=== PATIENT | female | born 1960 | race African-American/Black ===

== ENCOUNTER → 2021-08-15 02:58 | Outpatient (CLI) | payer OTHER, SELFPAY ==
[2021-08-15 21:55] LABS: SARS-CoV-2 RNA PCR Negative
== END ==
PROVIDERS: PCP Family Medicine; Visit Provider Internal Medicine Gastroenterology
DX: Z01.812 Encounter for preprocedural laboratory examination (principal); Z20.822 Contact with and (suspected) exposure to COVID-19
CPT/HCPCS: C9803; U0003; U0005

== ENCOUNTER 2021-08-18 00:56 | Day surgery (SDC) | payer OTHER, SELFPAY ==
[2021-08-05 13:49] VITALS: BMI 29.2
[2021-08-18 10:07] VITALS: BP 159/74; PULSE 90; RESP 18; TEMP 35.8; O2SAT 100; BMI 32.5
--- NOTE | 2021-08-18 10:31 | WPDANESEPPF ---
Anes - Initial Pre Proc Eval Procedure: Operation Date: 08/18/21 11:30 Proposed Procedures p Screening Colonoscopy - Benjamin Adkins MD Date/Time: 08/18/21 10:31 Surgeon: Benjamin Adkins MD Pre Op Diagnosis: neoplasm screening Patient Data Age: 61 Gender: F Height: 1.75 m Weight: 99.9 kg Last Vital Signs Temp 35.8 C L 08/18/21 10:07 Pulse 90 08/18/21 10:07 Resp 18 08/18/21 10:07 BP 159/74 H 08/18/21 10:07 Pulse Ox 100 08/18/21 10:07 Allergies Allergy/AdvReac Type Severity Reaction Status Date / Time No Known Allergies Allergy Verified 08/18/21 10:15 Home Medications Medication Instructions Recorded Confirmed Type amlodipine 10 mg tablet 10 mg PO DAILY 06/05/21 08/18/21 History atorvastatin 20 mg tablet 20 mg PO DAILY 06/05/21 08/18/21 History diclofenac sodium 1 % topical gel 2 g TOPICAL QID PRN 06/05/21 08/18/21 History dorzolamide 22.3 mg-timolol 6.8 1 drp EACH EYE QHS ml 06/05/21 08/18/21 History mg/mL eye drops latanoprost 0.005 % eye drops 1 drp EACH EYE DAILY 06/05/21 08/18/21 History losartan 100 mg tablet 100 mg PO DAILY 06/05/21 08/18/21 History oxybutynin chloride 5 mg tablet 5 mg PO BID #60 tablet 06/05/21 08/18/21 Rx Patient hx anesthesia problems: none Family hx anesthesia problems: none Results Review: All pre-operative results and documents have been reviewed as part of the pre-operative evaluation. FOR[facility]LY [facility], [facility] Past Medical History Medical History (Updated 07/01/21 @ 21:50 by Aniya Carmen MD) Appendicitis Benign essential HTN Cholecystitis Glaucoma History of radiation therapy HX: breast cancer Hyperlipidemia OAB (overactive bladder) Surgical History Surgical History (Updated 07/01/21 @ 21:38 by Aniya Carmen MD) History of appendectomy Hx laparoscopic cholecystectomy Hx of lumpectomy S/P DONALDO (total abdominal hysterectomy) Status post glaucoma surgery Family History Family History (Updated 07/01/21 @ 21:42 by Aniya Carmen MD) Other Heart disease Hypertension Social History Social History Smoking status: Never smoker Second hand tobacco smoke exposure: No Alcohol intake: never Substance use: never Substance use type: does not use Gender identity (if verbalized by the patient): Female Sexual Orientation (if Verbalized by the Patient): Straight or Heterosexual Anes - Eval Final PreProcedure Day of Procedure 08/18/21 10:31 Patient weight: obese Heart: regular rate and rhythm Lungs: clear to auscultation and normal air movement Airway: Mallampati scale class II Neurological: alert and oriented Last oral intake: >/= 8 hours ASA classification: III Emergent: no Anesthetic plan: proceed Anesthesia type and monitoring: general GIVS Results Review: All pre-operative results and documents have been reviewed as part of the pre-operative evaluation. Informed Consent: The patient's anesthetic plan and its attendant risks and benefits were discussed with the patient/family/POA. Questions were solicited and answers provided to the satisfaction of the patient/family/POA.
--- NOTE | 2021-08-18 10:40 | PM.HPGS ---
History of Present Illness History of Present Illness Consent: Risks, benefits, and alternatives have been discussed and questions answered. Patient agrees to proceed with procedure. Chief complaint: neoplasm screening Narrative: Ankita Soni is a 61 year old female here for screening colonoscopy, last one 5 years ago. Review of Systems Constitutional: Constitutional: Denies headache(s) and Denies weakness Eyes: Eyes: Denies blurry vision ENT: Reports Normal hearing present, Denies headache(s) and Denies neck pain Cardiovascular: Cardiovascular: Denies chest pain and Denies dyspnea Respiratory: Respiratory: Denies dyspnea Gastrointestinal: Gastrointestinal: Reports no additional gastrointestinal complaints Genitourinary: Genitourinary: Denies dysuria Musculoskeletal: Musculoskeletal: Denies neck pain Integumentary/Breasts: Skin/Breast: Denies dry skin Neurologic: Reports Normal hearing present, Denies headache(s) and Denies weakness Psychiatric: Psychiatric: Denies anxiety Endocrine: Endocrine: Denies change in body appearance Hematologic/Lymphatic: Hematologic/Lymphatic: Denies easy bleeding Allergic/Immunologic: Allergic/Immunologic: Denies urticaria PMFSH Past Medical History Medical History (Updated 07/01/21 @ 21:50 by Aniya Carmen MD) Appendicitis Benign essential HTN Cholecystitis Glaucoma History of radiation therapy HX: breast cancer Hyperlipidemia OAB (overactive bladder) Surgical History Surgical History (Updated 07/01/21 @ 21:38 by Aniya Carmen MD) History of appendectomy Hx laparoscopic cholecystectomy Hx of lumpectomy S/P DONALDO (total abdominal hysterectomy) Status post glaucoma surgery Family History Family History (Updated 07/01/21 @ 21:42 by Aniya Carmen MD) Other Heart disease Hypertension Social History Social History Smoking status: Never smoker Second hand tobacco smoke exposure: No Alcohol intake: never Substance use: never Substance use type: does not use Gender identity (if verbalized by the patient): Female Sexual Orientation (if Verbalized by the Patient): Straight or Heterosexual Meds Home Medications and Allergies Home Medications Medication Instructions Recorded Confirmed Type amlodipine 10 mg tablet 10 mg PO DAILY 06/05/21 08/18/21 History atorvastatin 20 mg tablet 20 mg PO DAILY 06/05/21 08/18/21 History diclofenac sodium 1 % topical gel 2 g TOPICAL QID PRN 06/05/21 08/18/21 History dorzolamide 22.3 mg-timolol 6.8 1 drp EACH EYE QHS ml 06/05/21 08/18/21 History mg/mL eye drops latanoprost 0.005 % eye drops 1 drp EACH EYE DAILY 06/05/21 08/18/21 History losartan 100 mg tablet 100 mg PO DAILY 06/05/21 08/18/21 History oxybutynin chloride 5 mg tablet 5 mg PO BID #60 tablet 06/05/21 08/18/21 Rx Allergies Allergy/AdvReac Type Severity Reaction Status Date / Time No Known Allergies Allergy Verified 08/18/21 10:15 Vital Signs Vital Signs - 24 hr 08/18/21 10:07 Temperature 96.5 F L Pulse Rate 90 Respiratory Rate 18 Blood Pressure 159/74 H Pulse Oximetry 100 Exam Const: General: comfortable and no acute distress HENMT: General nose exam: Normal nares present Eyes: General: appearance normal, both eyes and all related structures Neck: Neck: no JVD Resp: Auscultation: clear to auscultation bilaterally Cardio: Rate: regular rate Rhythm: regular rhythm GI: Inspection: non-distended GI Palp: Yes Soft to palpation Skin: General skin exam: normal color Neuro: General: gait normal Speech: normal speech Extrem: General: normal to inspection Psych: Mental Status: mental status grossly normal Assessment and Plan Assessment and plan (1) Colon cancer screening: Code(s): Z12.11 - Encounter for screening for malignant neoplasm of colon Status: Acute Assessment and Plan: colonoscopy
[2021-08-18] MEDS: LACTATED RINGERS 1,000 ML 150 ML IV CONT (10:52)
[2021-08-18 11:17] VITALS: BP 121/56; PULSE 80; RESP 24; O2SAT 97
[2021-08-18 11:27] VITALS: BP 123/59; PULSE 77; RESP 20; O2SAT 98
[2021-08-18 11:37] VITALS: BP 144/71; PULSE 70; RESP 19; O2SAT 100
== END 2021-08-18 12:05 | disposition home or self-care (01) ==
PROVIDERS: PCP Family Medicine; Visit Provider Internal Medicine Gastroenterology
PROC: 0DJD8ZZ Inspection of Lower Intestinal Tract, Via Natural or Artificial Opening Endoscopic (ICD-10-PCS; CPT 45378; principal; 2021-08-18 11:30)
DX: Z12.11 Encounter for screening for malignant neoplasm of colon (principal); K57.30 Diverticulosis of large intestine without perforation or abscess without bleeding; K64.8 Other hemorrhoids; I10 Essential (primary) hypertension; E78.5 Hyperlipidemia, unspecified; Z85.3 Personal history of malignant neoplasm of breast; Z92.3 Personal history of irradiation; N32.81 Overactive bladder; E66.9 Obesity, unspecified; Z68.32 Body mass index [BMI] 32.0-32.9, adult
CPT/HCPCS: 45378; C9803; J2704; J7120; U0003; U0005

== ENCOUNTER 2024-11-10 07:33 | Emergency (ER) | payer MEDICARE, SELFPAY ==
--- NOTE | ~2024-11-10 | XR_ITS ---
EXAMINATION: XR chest 1V portable 11/10/2024 08:08 INDICATION: Left-sided chest pain PROCEDURE: AP portable chest COMPARISON: No prior studies for comparison. FINDINGS: The lungs are clear. The cardiomediastinal silhouette is within normal limits. There are no pleural effusions. There is no pneumothorax suspected. IMPRESSION: 1: NO ACUTE CARDIOPULMONARY DISEASE. Reviewed, dictated and finalized at location B.
--- OUTSIDE RECORDS SUMMARY | 2024-11-10 07:40 | XMS_ITS | Encounter Summary ---
Author Organization [facility] Address [address] [place] [address] Phone Care Team Providers Care Car Seat Upholsterer Name Role Phone Carlos Eduardo Abdi MD Primary Care Provider [phone] Asim Avendano MD Primary Care Provider Aniya Carmen MD Primary Care Provider Gabriela Frye MD Primary Care Provider Karma Ledezma MD Primary Care Provide r Encounter Details Date Type Department Care Team (Late st Contact Info) Description 07/28/2019 Telephone [facility] Obstetrics and Gynecology [address] [facility] [place] Outpatient Health 7th Floor [address] [place] [address] Kelsy Martell Social History Tobacco Use Types Packs/Day Years Used Date Smoking Tobacco: Never Smokeless Tobacco: Never Alcohol Use Standard Drinks/Week Comments No 0 (1 standard drink = 0.6 oz pur e alcohol) Humiliation, Afraid, Rape, and Kick questionnair e Answer Date Recorded Fear of Current or Ex-Partner No Emotionally Abused No 04/13/2019 Physically Abused No 04/13/2019 Sexually Abused No 04/13/2019 Social Connection and Isolation Panel [NHANES] A nswer Date Recorded Frequency of Communication with Friends and Fami ly Not on file 04/13/2019 Frequency of Social Gatherings with Friends and Family Not on file 04/13/2019 Attends Worship Services Not on file 04/13 Active Member of Clubs or Organizations Not on f ile 04/13/2019 Attends Club or Organization Meetings Not on marlee e 04/13/2019 Marital Status Never 04/13/2019 Exercise Vital Sign Answer Date Recorde d Days of Exercise per Week 0 days 2018 Minutes of Exercise per Session 0 min 04/13/2019 Comments No Sex and Gender Information Value Date Recorded Sex Assigned at Not on file Legal Sex Female 12:42 AM FOOD TASTER Gender Identity Not on file Sexual Orientation Not on file 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 Author Med Mgmt Goal - Patient will understand importance of following medication regimen and will take appropriate steps to maintain regimen ACO Care Management Improving( 9:09 AM CDT) No Skyla Méndez Note: Problem: Medication management Interventions: - Assess barriers to medication adherence: Provide coordination of care, education and resources to address these barriers. Include SW in patient's plan of care for resources if needed. - Instruct patient to: Take each medication each day at the times indicated by using a system (list, pill box, etc.). Do not allow prescriptions to or bottles to become empty before requesting refills. Bring all medications to each office visit. Contact physician or CM if they feel they are having side effects from medications (rather than stopping them without telling anyone). [facility] Hypertension Care Plan Chronic Care Management No change(04/18 9:09 AM CDT) No Adrianna Wilson, RN Note: Problem: Hypertension Goals: 1. Meet age adjusted blood pressure goals 2. Prevention of complications including eyes, kidneys blood vessels 3. Avoid low blood pressure/passing out 4. Improve medicine access and compliance Strategies: - DASH Diet education - Periodic phone call screening for development of vision changes, pain/fatigue associated with walking, near falls - Periodic phone calls to request blood pressure readings, frequency of missed medication doses, any side affects - Encourage regular MD visits and remind patient of importance of keeping upcoming appointments - Recommend healthy lifestyle strategies and compensatory methods as needed documented as of this encounter Visit Diagnoses Not on filedocumented in this encounter Care Teams Car Seat Upholsterer Relationship Specialty Start Date End Date Carlos Eduardo Abdi MD [address] [facility] [address] [place] [address] PCP - General Internal Medicine 03/15/19 01/10/21 Asim Avendano MD [address] [facility] [address] [place] [address] PCP - General 12/08/21 12/09/21 Aniya Carmen MD [address] [place] [address] PCP - General 09/01/21 12/07/21 Gabriela Frye MD [address] [place] [address] PCP - General Internal Medicine 12/10/21 01/08/23 Karma Ledezma MD [address] [facility] [address] [place] [address] PCP - General 01/09/23 documented as of this encounter
--- OUTSIDE RECORDS SUMMARY | 2024-11-10 07:40 | XMS_ITS | Clinical Summary ---
Author Organization [facility] Address [facility] [place] [address] Care Team Providers Care Ag Service Manager Name Role Phone Ernesto Fitzpatrick MD Unavailable Unavailable Claudine Ramsey MD Primary Care Provider [phone] Allergies No known active allergies Medications dorzolamide 2 % ophthalmic solution Use as directed 11/30/2016 Active amlodipine 5 MG tablet Take 1 tablet (5 mg total) by mouth daily. 11/30/2016 Active latanoprost 0.005 % ophthalmic solution Use as directed 11/30/2016 Active aspirin EC 81 MG EC tablet Take 1 tablet (81 mg total) by mouth daily. 01/04/2017 Active Active Problems Problem Noted Date Diagnosed Date NETTLES (dyspnea on exertion) Essential hypertension Family History Medical History Relation Comments Breast Cancer Paternal Aunt Relation Status Comments Paternal Aunt Social History Tobacco Use Types Packs/Day Years Used Date Smoking Tobacco: Never Smokeless Tobacco: Never Alcohol Use Standard Drinks/Week Comments No 0 (1 standard drink = 0.6 oz pur e alcohol) Comments Unknown Sex and Gender Information Value Date Recorded Sex Assigned at Not on file Legal Sex Female 8:46 AM CDT Gender Identity Not on file Sexual Orientation Not on file Occupation Industry Job Start Date Job End Date Not on file Not on file Not on file Not on file Last Filed Vital Signs Vital Sign Reading Time Taken Comments Blood Pressure 142/70 01/14/2017 12:44 PM CDT Pulse 88 01/14/2017 12:44 PM CDT Temperature - - Respiratory Rate - - Oxygen Saturation 98% 01/14/2017 12:44 PM CDT Inhaled Oxygen Concentration - - Weight 99.3 kg (219 lb) 01/14/2017 12:44 PM CDT Height 175.3 cm (5' 9 ) 01/14/2017 12:44 PM CDT Body Mass Index 32.34 01/14/2017 12:44 PM CDT Plan of Treatment Health Maintenance Due Date Last Done Comments Colorectal Cancer Screening Colonoscopy (10 Years) 1958 Hepatitis C 1976 Mammogram Screening 1998 Pneumococcal Vaccine: 50+ Ye ars (1 of 1 - PCV) 2008 Zoster Vaccines (1 of 2) 2008 DTaP, Tdap and Td Vaccines ( 2 - Td or Tdap) 03/20/2019 03/20/2009 Dexa Scan (General) 2023 COVID-19 Vaccine (1 - 2023-2 5 season) 2024 RSV Immunization or 60+ Years (1 - 1-dose 75+ series) 2033 Meningococcal B Vaccine Aged Out No l onger eligible based on patient's age to complete this topic Meningococcal Vaccine Aged Out No chloe celestino eligible based on patient's age to complete this topic RSV Immunizations Under 20 Months Aged Out No longer eligible based on patient's age to complete this topic Insurance Care Teams Ag Service Manager Relationship Specialty Start Date End Date Claudine Ramsey MD PCP - General 03/09/17 Ernesto Fitzpatrick MD [employer] Super[employer] CARDIOVASCULAR DISEASE 11/24/16
--- OUTSIDE RECORDS SUMMARY | 2024-11-10 07:40 | XMS_ITS | Referral Summary ---
Author Organization [facility] [address] Address [address] [facility] [place] [id number] Care Team Providers Care Brazing Machine Operator Name Role Phone Karma Ledezma MD Primary Care Provide r Allergies Active Allergy Reactions Criticality Noted Date Comments Codeine Hallucinations Medium 01/23/2019 Medications diclofenac sodium (VOLTAREN) 1 % gel Apply 2 g topically 4 (four) times a day 100 g 1 Active olopatadine (PATANOL) 0.1 % ophthalmic solutionIndication s:Allergic Conjunctivitis Administer 1 drop into both eyes 2 (two) times a day 5 mL 11 2 Active clotrimazole 1 % creamIndications:R ellie Apply topically 2 (two) times a day Apply cream under both breasts twice a day 30 g 1 2 Active amLODIPine (NORVASC) 10 mg tablet Take 1 tablet (10 mg total) by mouth daily 90 tablet 3 3 Active cyclobenzaprine (FLEXERIL) 5 mg tabletIndications: Muscle Spasm Take 1 tablet (5 mg total) by mouth 3 (three) times a day as needed for muscle spasms 30 tablet 3 Active lidocaine (LIDODERM) 5 %Indications:Neck pain on right side Place 1 patch on the skin daily Apply to painful area 12 hours per day, remove for 12 hours. 30 patch 3 Active atorvastatin (LIPITOR) 40 mg tablet Take 1 tablet (40 mg total) by mouth daily 90 tablet 3 3 Active losartan (COZAAR) 100 mg tabletIndications: Essential (primary) hypertension Take 1 tablet (100 mg total) by mouth daily 90 tablet 3 3 Active dorzolamide-timolo L (COSOPT) 22.3-6.8 mg/mL ophthalmic solution Administer 1 drop into both eyes 2 (two) times a day 30 mL 3 Active latanoprost (XALATAN) 0.005 % ophthalmic solution Administer 1 drop into both eyes daily 7.5 mL 3 Active Active Problems Problem Noted Date Diagnosed Date Numbness and tingling in left arm 03/30/2023 Assessment & Plan (03/30/2023 2:05 PM CDT): Followed with ortho ~10 years ago and was noted to have left trigger thumb causing pain and carpal tunnel syndrome in the right hand. Interested in following with ortho again for numbness in left arm. PLAN: - ortho referral Right leg pain 03/15/2023 Overview (03/30/2023): Symptoms seem consistent with claudication. No unilateral swelling or erythema noted. Patient has risk factors for PAD w/ HTN and HLD. Pt. reports that she has been adherent to atorvastatin 40 mg since last visit. PLAN: - continue atorvastatin 40 mg - right LED - bilateral ultrasound ISAAC Assessment & Plan (03/15/2023 12:28 PM CDT): A: Symptoms seemed consistent with claudication, although always somewhat worried about DVT with unilateral leg pain, although no swelling, erythema, tenderness to further suggest a clot (although patient stated she could feel a knot?). Patient has risk factors for PAD w/ HTN, HLD, will work up further. Patient only intermittently adherent to atorva 40 -Right LED -Bilateral ultrasound ISAAC -Encourage better adherence to atorvastatin Neck pain on right side 01/27/2023 Assessment & Plan (03/30/2023 1:54 PM CDT): Reporting neck pain that extends down to shoulder; has been ongoing for several months. Pain is non-radiating and pt. 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 XR cervical spine (01/27/2023) consistent with mild multilevel cervical degenerative disease. Feels like Voltaren is helping. Not consistent taking tylenol and has not tried flexeril. Pt interested in PT. PLAN: - tylenol 1000 mg qh8 - continued use of lidocaine patch and voltaren gel prn - flexeril 5 mg TID prn - referral to PT Assessment & Plan (01/27/2023 11:18 AM CDT): Presenting with 1 month history of R-sided neck pain. No obvious trigger/injury. Chart review (though no prior XRs available for review) indicates hx of DDD. No neuropathic sxs radiating into arm, delgado negative. Minimal trapezius muscle tenderness on exam. Limited cervical spine ROM in rightward direction 2/2 pain. Strength equal bilateral upper extremities. No vertebral point tenderness to palpation. With no neuropathic sx and Delgado negative very low concern for cervical radiculopathy. 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 Will trial muscle relaxer and obtain films of cervical spine to characterize vertebral architecture. Recommended PT but patient refused. PLAN: - XR cervical spine today - start flexeril 5mg TID PRN - cont APAP, ibuprofen - lidocaine patch - offered PT, refused - neck exercises provided today in clinic Sensorineural hearing loss, bilateral 09/10/2022 Rash 04/17/2022 Assessment & Plan (04/19/2022 10:40 PM CDT): 1w h/o itch, nonpainful rash beneath breasts. Likely fungal infection iso exertion at work. Less likely cellulitis or recurrence of prior malignancy given exam. - clotrimazole bid - discussed keeping the area clean and dry Allergic conjunctivitis and rhinitis, bilateral 04/08/2022 Assessment & Plan (04/08/2022 11:22 AM CDT): Seasonal component per pt - worse when people around her are cutting grass. No issues w/ eyedrops. No follicular reaction. -- start on Pataday qday OU Prediabetes 03/27/2022 Assessment & Plan (03/30/2023 1:39 PM CDT): Hgb A1c (03/2022) - 5.4. PLAN: -repeat Hgb A1c Osteoarthritis 12/12/2021 Overview (12/29/2021): Suspect pain today is related to OA. No concern for infection. -Leon's node of L 1st finger, hx of corticosteroid injection in base of L 1st finger for bothersome OA. -Similar pain in R 5th toe -History not consistent with gout Assessment & Plan (12/29/2021 1:09 PM CDT): -Pt will be getting previously ordered x-ray of L hand and R foot. Will add L foot x-ray given pain there today -Ok for occasional ibuprofen use -Voltaren gel and lidocaine gel PRN -Tylenol 1g q6h PRN Assessment & Plan (12/12/2021 7:26 AM CDT): -Discussed with patient this can be a manifestation of OA -Recommended OTC Ibuprofen PRN, pt aware to take with food and limit use -XR L hand, R foot to r/o erosive arthritis Lump of left breast 07/31/2020 Vertigo 09/26/2019 Overview (03/27/2022): - Episodal vertigo symptoms that last several minutes after moving her head, fredrick when lying down or sitting back up. - [place] off balance at time but no falls - Denies fevers, flu/cold symptoms, hearing changes - Symptoms reproduced by [place]. [place] better when Radha maneuver performed in clinic. Ddx: BPPV given positional nature, possible Meniere vs labyrinthitis Assessment & Plan (07/31/2022 8:47 AM SEARCH ENGINE OPTIMIZATION MANAGER): Symptoms are consistent with BPPV. Also with allergic rhinitis and bilateral cerumen impaction on exam today. Performs Radha maneuver at home with some success, but would like further evaluation with ENT as her symptoms are still bothersome. -Bilateral ear irrigation performed by RN today -Use Flonase for allergic rhinitis -ENT referral Assessment & Plan (03/27/2022 1:19 PM CDT): - Performed Radha maneuver in clinic and provided patient with additional info. - PT referral in place - Patient will try Radha at home and if symptoms do not improve, will schedule with PT. 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 Cervical xrays negative, although no xrays of the R shoulder. PLAN: - can hold off on US of shoulder - PT referral - tylenol 1000 mg q8h, flexeril 5 mg TID, Voltaren and lidocaine patch prn Assessment & Plan (01/16/2019 10:06 PM CDT): C/f rotator cuff tendinopathy although empty can test negative on exam today. Symptomatically improved with APAP, typically takes this just once at the end of a work shift. - Will place new orthopedics referral, provided patient with phone # to call their clinic - Further imaging/workup per ortho recs - Start APAP 500 mg TID scheduled - Will write work note recommending lifting restrictions Combined forms of age-related cataract of both e yes 08/03/2018 Assessment & Plan (08/12/2022 5:10 PM SEARCH ENGINE OPTIMIZATION MANAGER): Not VS- observe Assessment & Plan (04/08/2022 11:21 AM CDT): Not VS- observe Assessment & Plan (10/02/2020 11:43 AM SEARCH ENGINE OPTIMIZATION MANAGER): Increased glare symptoms- but defer cataract extraction (CE) for now Assessment & Plan (12/27/2019 12:12 PM CDT): Decreased Va with BAT, not significant to pt. Assessment & Plan (08/03/2018 11:46 AM SEARCH ENGINE OPTIMIZATION MANAGER): - NVS, observe Primary open angle glaucoma (POAG) of both eyes, severe stage 08/02/2018 Overview (08/20/2021): Brimonidine allergy Assessment & Plan (08/12/2022 5:10 PM SEARCH ENGINE OPTIMIZATION MANAGER): IOP mid to high teens on 3 classes At last visit, concern for gradual progression of SA on GVF OD, however patient very fatigued Today, HVF 24-2 size 5 unreliable with significant false positive rate, difficult to compare directly to prior GVF DFEx stable Unclear if patient is progressing. OCT RNFL from 03/2022 similar to OCT from 07/2018. CPM -- consider Rocklatan in future if IOP rises? F/U [address] Severino F/U with me in 1 yr with GVF, DFE, OCT Assessment & Plan (04/08/2022 9:01 PM CDT): intraocular pressure (IOP) upper teens on 3 classes - GVF OD with gradual progression of SA? difficult to ascertain as pt fatigued by end of testing today - not able to obtain OS. : - IOP stable with variable adherence to therapy. - CPM -- consider Rocklatan in future if IOP rises RTC 4-5 mo for HVF size V OU, DFE. Assessment & Plan (08/20/2021 3:35 PM SEARCH ENGINE OPTIMIZATION MANAGER): Today 08/20/21 VA OD 20/20 and OS 20/15 IOP OD 20, 17 / IOP OS 21, 16 - Using: cos 2/2, latan 07/26 - GVF OD with gradual progression of SA? Plan: - IOP stable with variable adherence to therapy. - CPM -- consider Rocklatan in future if IOP rises RTC 6mo for GCL/RNFL GVF both eyes (OU) Assessment & Plan (10/02/2020 8:09 PM SEARCH ENGINE OPTIMIZATION MANAGER): GVF: variable SNS OD, stable OS vs 07/2018 OCT RNFL: thinner sup vs 07/2018 OD, thinner sup vs 2014 OS but stable vs 2019 IOPs stable today on 3 classes OU but occasionally misses latanoprost Allergy to brimonidine Consider Rocklatan - defers for now, states she will improve adherence with this regimen if she takes latanoprost at different time of day Pt agrees to return in 5-6 months with DFE, Repeat GVF right eye (OD) Assessment & Plan (12/27/2019 12:12 PM CDT): intraocular pressure (IOP) stable Have not seen pt in 1 year, needs GVF - unable to perform on schedule today CPM- states adherence with meds F/U 4-5 months with GVF, OCT Assessment & Plan (01/04/2019 4:12 PM CDT): - status post (s/p) SLT OU - status post (s/p) Trab OS, failed - on 3 classes - IOP OU borderline Allergy to brimonidine - start artificial tears or allergy drops PRN F/U 4 months- pt defers any other therapy Stressed adherence Patient states she misses drops (gtts) 1-2 times per week due to her schedule She will use a calender to keep track of gtts Assessment & Plan (08/03/2018 9:41 PM SEARCH ENGINE OPTIMIZATION MANAGER): - status post (s/p) SLT OU - status post (s/p) Trab OS, failed - on 3 classes - IOP OD above goal, OS borderline Allergy to brimonidine - start artificial tears or allergy drops PRN F/U 4-5 months- pt defers any other therapy Stressed adherence Allergic rhinitis 03/25/2017 Well adult health check 11/19/2016 Overview (03/27/2022): General - DEXA (women >65 or high risk): At 65 Cancer - Colonoscopy (age 45-75): Patient reports she had colonoscopy at OSH in 2020 and was told they did not find any polyps. Repeat due 2025 due to hx polyps. - Mammogram (women age 50-74): 08/2021 post breast conservation therapy changes in L breast, benign - Pap (women 21-65): Follows with OBGYN - Lung (50-80 with >20 pk-yr hx, and smoking in past 15yrs): N/A Infectious Disease - HCV: HCV RNA negative 02/2021; consider HCV ab on future labs - HIV: Neg 2020 Immunizations - Influenza (annually): this fall - Td/Tdap (q10 years): 2018 - PPSV23 (age >65, immunocomp, DM, CKD, heart dz, lung dz, liver dz, EtOH, asplenia): at 65 - Shingles (age >50): recommended - COVID-19: declines Obesity 11/19/2016 Polyp of colon 08/01/2015 History of breast cancer 10/17/2014 Abnormal findings on diagnostic imaging of breas t 12/25/2013 Gastroesophageal reflux disease 12/09/2013 Overview (04/13/2019): ESOPHAGEAL REFLUX Degeneration of intervertebral disc of cervical region 09/13/2013 Overview (10/30/2016): Degenerative disc disease, cervical Essential (primary) hypertension 05/20/2012 Assessment & Plan (03/30/2023 1:36 PM CDT): 138/64 BP in clinic today. Currently taking only taking losartan 100 mg daily and amlodipine 10 mg daily. Not taking with HCTZ 12.5 mg, which was started 07/2022. PLAN: - continue losartan 100 mg daily and amlodipine 10 mg daily - can consider restarting HCTZ 12.5 mg in the future Assessment & Plan (08/14/2022 10:08 PM SEARCH ENGINE OPTIMIZATION MANAGER): Blood pressure 146/60 during last clinic visit despite compliance with losartan 100 mg daily and amlodipine 10 mg daily. States that her blood pressure has bee consistently > 140/80 when checking at home. Denies headaches, dizziness, blurry vision or anxiety. - Start HCTZ 12.5 mg daily - BMP in 1-2 weeks to monitor electrolytes - patient informed Assessment & Plan (07/31/2022 8:50 AM SEARCH ENGINE OPTIMIZATION MANAGER): BP above goal in clinic today despite adherence to losartan 100 daily and amlodipine 10 daily. -Check BP at home once daily for next 2 weeks -Telehealth visit in 2 weeks to discuss home BPs, if consistently >120/80 will start HCTZ 12.5 mg daily -CMP today (on statin, no recent LFTs on file) Assessment & Plan (04/19/2022 10:42 PM CDT): BP 162/66. Rx: amlodipine 10 and losartan 50. Endorses compliance with this. Suspect some element of uncomfortability d/t rash. - increase losartan to 100mg daily Assessment & Plan (12/29/2021 1:03 PM CDT): -losartan 50 daily -amlodipine 50 daily -BMP today Assessment & Plan (12/12/2021 7:23 AM CDT): -Amlodipine 10 mg daily, losartan 50 mg daily -Return in 2 weeks for BP recheck and BMP Assessment & Plan (12/04/2019 11:54 AM CDT): BP well controlled today. Was previously prescribed losartan 100mg daily but due to confusion with pharmacy, patient has only been taking 50mg of losartan daily. Remains compliant with amlodipine 10mg. As patient is well controlled with current regimen, will not make changes today. - Losartan 50mg daily - Continue amlodipine 10mg daily - Spoke with pharmacy and clarified what does of losartan patient should be taking Assessment & Plan (01/16/2019 10:01 PM CDT): Hypertensive today; patient with atypical dosing schedule (takes amlodipine in AM, lisinopril in afternoon) but endorses compliance. However, reports new dry cough. - stop lisinopril - start losartan 25mg daily - continue amlodipine 10 Malignant neoplastic disease 02/03/2012 Resolved Problems Problem Noted Date Diagnosed Date Resolved Date Vaginal irritation 02/02/2019 2 Assessment & Plan (02/02/2019 10:38 AM CDT): Pain following urination, no symptoms/signs of infection. Pelvic exam with e/o significant vaginal atrophy. Not sexually active, s/p TAHBSO: no need for paps - ObGyn referral per patient request Dyspnea on exertion 11/19/2016 09/24/19 22 Increased frequency of urination 11/19/2016 09/23/2021 Knee pain 11/19/2016 09/23/2021 Urinary tract infectious disease 11/19/2016 09/23/2021 Dysuria 09/27/2013 09/23/2021 Immunizations Immunization Administration Dates Next Due Influenza, Quadrivalent, Spl it, Preservative Free, Intradermal 05/08/2016 Influenza, Quadrivalent, Spl it, Preservative Free, Intramuscular 07/05/2020,05/24/2018,04/25/2014 Influenza, Split 04/25/2009 Influenza, Trivalent, IM (MDV) 04/25/2012 Td, Unspecified 11/23/2012 Tdap 03/20/2009 Social History Tobacco Use Types Packs/Day Years Used Date Smoking Tobacco: Never Smokeless Tobacco: Never Tobacco Cessation:Counseling Given: Not Answered Alcohol Use Standard Drinks/Week Comments No 0 [...] and Family Not on file 04/13/2019 Attends [employer] Services Not on file 04/13 Active Member of Clubs or Organizations Not on f ile 04/13/2019 Attends Club or Organization Meetings Not on marlee e 04/13/2019 Marital Status Never 04/13/2019 AUDIT-C Answer Date Recorded Q1: How often do you have a drink containing alc ohol? Never 05/22/2021 Average Number of Drinks Not on file 021 Frequency of Binge Drinking Not on file 04/26 Exercise Vital Sign Answer Date Recorde d Days of Exercise per Week 0 days 2018 Minutes of Exercise per Session 0 min 04/13/2019 Hunger Vital Sign Answer Date Recorded Within the past 12 months, y ou worried that your food would run out before you got the money to buy more. Never true 03/26/20 23 Within the past 12 months, t he food you bought just didn't last and you didn't have money to get more. 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 Not on file Not on file Last Filed Vital Signs Vital Sign Reading Time Taken Comments Blood Pressure 138/64 03/26/2023 10:52 AM CDT Pulse 78 03/26/2023 10:52 AM CDT Temperature 36.6 C (97.8 F) 03/26/2023 10:52 AM CDT Respiratory Rate 20 03/26/2023 10:5 2 AM CDT Oxygen Saturation 100% 03/26/2023 10: 52 AM CDT Inhaled Oxygen Concentration - - Weight 102.5 kg (225 lb 14.4 oz) 2022 10:52 AM CDT Height 175.3 cm (5' 9 ) 03/26/2023 10:5 2 AM CDT Body Mass Index 33.36 03/26/2023 10:52 AM CDT Plan of Treatment Scheduled Procedures Name Priority Associated Diagnoses Date/Ti me COLONOSCOPY Colon cancer screening Goals Goal Patient Goal Type Associated Problems Recent Progress Patient-Stated? Author Med Mgmt Goal - Patient will understand importance of following medication regimen and will take appropriate steps to maintain regimen ACO Care Management Improving( 9:09 AM CDT) Skyla Alnozo Note: Problem: Medication management Interventions: - Assess [...] (rather than stopping them without telling anyone). CCM Hypertension Care Plan Chronic Care Management No change(04/18 9:09 AM CDT) No Adrianna Wilson RN Note: Problem: Hypertension Goals: 1. Meet [...] lifestyle strategies and compensatory methods as needed Drink more water Diet Improving( 10:02 AM SEARCH ENGINE OPTIMIZATION MANAGER) Stu Chiang RN Procedures Procedure Name Priority Date/Time Associated Diagnosis Comments SCREENING MAMMOGRAM BILATERAL W JOSÉ LUIS Schedule Routine, Read Routine (OP Routine) 01/07/2024 11:01 AM CDT Encounter for screening mammogram for breast cancer HEPATITIS C RNA, QUANTITATIVE, PCR Routine 02/25/2021 4:22 PM CDT Encounter for hepatitis C screening test for low risk patient COLONOSCOPY REPORT 09/16/2015 from Last 3 Months or Most Recently Relevant to Health Maintenance Results * Screening Mammogram Bilateral W José Luis (01/07/2024 11:01 AM CDT) Anatomical Region Laterality Modality Breast Bilateral Mammography Narrative 01/10/2024 8:55 AM CDT Mammogram Technique: Bilateral Digital Breast Tomosynthesis, Bilateral C-view 2D Screening mammogram. Views obtained: bilateral craniocaudal and bilateral mediolateral oblique. Computer Aided Detection was performed. Mammogram Findings: The present examination has been compared to prior imaging studies performed at [facility] on 05/08/2016, 06/25/2017, 07/28/2018, 09/26/2019, 07/31/2020, 09/01/2021 and 12/09/2022. The breasts are heterogeneously dense, which may obscure small masses. There are post breast conservation therapy changes in the left breast. There are no significant changes from the prior study. There is no suspicious abnormality in either breast. Impression: Post breast conservation therapy changes in the left breast are benign. Annual screening mammography is recommended. If supplemental screening is desired, breast MRI would be recommended in this patient with heterogeneously dense breasts. OVERALL FINAL ASSESSMENT: BI-RADS CATEGORY 2: Benign. Procedure Note Concepción Vanegas MD - 01/10/2024 Mammogram Technique: Bilateral Digital Breast Tomosynthesis, Bilateral C-view 2D Screening mammogram. Views obtained: bilateral craniocaudal and bilateral mediolateral oblique. Computer Aided Detection was performed. Mammogram Findings: The present examination has been compared to prior imaging studies performed at [facility] on 05/08/2016, 06/25/2017,07/28/2018, 09/26/2019, 07/31/2020, 09/01/2021 and 12/09/2022. The breasts are heterogeneously dense, which may obscure small masses. There are post breast conservation therapy changes in the left breast. There are no significant changes from the prior study. There is no suspicious abnormality in either breast. Impression: Post breast conservation therapy changes in the left breast are benign. Annual screening mammography is recommended. If supplemental screeningis desired, breast MRI would be recommended in this patient with heterogeneously dense breasts. OVERALL FINAL ASSESSMENT: BI-RADS CATEGORY 2: Benign. Dulce Pryor NP IMG MAMMO PROCEDURES Zulma l Result * Hepatitis C (HCV) RNA PCR, quantitative (02/25/2021 4:22 PM CDT) [facility] HCV RNA result Not Detected [facility] Comment: Interpretive data: The quantifiable range of this assay is 15 IU/mL to 100,000,000 IU/mL (1.18 log IU/mL to 8.00 log IU/mL). Testing was performed by the [employer] AmpliPrep/LEONIDAS TaqMan HCV Test version 2.0 ([employer] Testing performed at [facility] Current Interpretive Data was last revised on 2015. Blood specimen (specimen) 02/25/2021 4:22 PM CDT 02/25/2021 4:22 PM CDT Shahla Scruggs MD LAB MICROBIOLOGY - GENERAL OR DERABLES Final Result [facility] Department [place] [address] * COLONOSCOPY REPORT (09/16/2015) Anatomical Region Laterality Modality Other Narrative 09/16/2015 Ordered by an unspecified provider. Historical Provider GI PROCEDURE ORDERABLES F inal Result from Last 3 Months or Most Recently Relevant to Health Maintenance Insurance [facility] Advance Directives For more information, please contact: [phone] * Full Code (Latest Code Status on File) Date Activated Date Inactivated Comments 01/23/2019 9:09 AM 01/23/2019 1:56 PM Care Teams Brazing Machine Operator Relationship Specialty Start Date End Date Karma Ledezma MD [id number] [address] PCP - General 01/09/23
--- OUTSIDE RECORDS SUMMARY | 2024-11-10 07:40 | XMS_ITS | Clinical Summary ---
Author Organization [facility] Medical [facility] [place] [address] Address [address] [facility] [place] [address] Care Team Providers Care Trimmer Sorter Name Role Phone Karma Ledezma MD Primary [...] lying down or sitting back up. - Rochert off balance at time but no falls - Denies fevers, flu/cold symptoms, hearing changes - Symptoms reproduced by [place]-Hallpike. Rochert better when Radha maneuver performed in clinic. Ddx: BPPV given positional nature, possible Meniere vs labyrinthitis Assessment & Plan (07/31/2022 8:47 AM LINEN SUPERVISOR): Symptoms are consistent with BPPV. Also with [...] 08/03/2018 Assessment & Plan (08/12/2022 5:10 PM LINEN SUPERVISOR): Not VS- observe Assessment & Plan (04/08/2022 11:21 AM CDT): Not VS- observe Assessment & Plan (10/02/2020 11:43 AM LINEN SUPERVISOR): Increased glare symptoms- but defer cataract extraction (CE) for now Assessment & Plan (12/27/2019 12:12 PM CDT): Decreased Va with BAT, not significant to pt. Assessment & Plan (08/03/2018 11:46 AM LINEN SUPERVISOR): - NVS, observe Primary open angle glaucoma (POAG) of both eyes, severe stage 08/02/2018 Overview (08/20/2021): Brimonidine allergy Assessment & Plan (08/12/2022 5:10 PM LINEN SUPERVISOR): IOP mid to high teens on 3 [...] DFE. Assessment & Plan (08/20/2021 3:35 PM LINEN SUPERVISOR): Today 08/20/21 VA OD 20/20 and OS [...] (OU) Assessment & Plan (10/02/2020 8:09 PM LINEN SUPERVISOR): GVF: variable SNS OD, stable OS vs [...] gtts Assessment & Plan (08/03/2018 9:41 PM LINEN SUPERVISOR): - status post (s/p) SLT OU - [...] future Assessment & Plan (08/14/2022 10:08 PM LINEN SUPERVISOR): Blood pressure 146/60 during last clinic visit despite compliance with losartan 100 mg daily and amlodipine 10 mg daily. States that her blood pressure has bee consistently > 140/80 when checking at home. Denies headaches, dizziness, blurry vision or anxiety. - Start HCTZ 12.5 mg daily - BMP in 1-2 weeks to monitor electrolytes - patient informed Assessment & Plan (07/31/2022 8:50 AM LINEN SUPERVISOR): BP above goal in clinic today despite [...] (MDV) 04/25/2012 Td, Unspecified 11/23/2012 Tdap 03/20/2009 Surgical History Surgery Date Site/Laterality Comments CHOLECYSTECTOMY Cholecystectomy APPENDECTOMY Appendectomy OTHER SURGICAL HISTORY 2009 Cancer, breast: Lumpectomy OTHER SURGICAL HISTORY Glaucoma: Drug therapy OTHER SURGICAL HISTORY postmenopausal bleeding: DONALDO, ovarian remnant excision Medical History Medical History Date Comments Glaucoma Glaucoma Hx Other Medical postmenopausal bleeding Hypertension Hyperlipidemia GERD (gastroesophageal reflux disease) Colon polyp Family History Medical History Relation Name Comments Diabetes type II Father Diabetes -T ype II; Hyperlipidemia Mother Colon cancer Neg Hx Relation Name Status Comments Father Mother Social History Tobacco Use Types Packs/Day Years [...] and Family Not on file 04/13/2019 Attends Mormonism Services Not on file 04/13 Active Member [...] on file Legal Sex Female 12:42 AM LINEN SUPERVISOR Gender Identity Not on file Sexual Orientation Not on file 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 Not on file Not on file Obstetrics History Para Term AB IAB SAB Ectopic Multiple Livin g Live Births 0 0 0 0 0 0 0 0 0 0 0 Last Filed Vital Signs Vital Sign Reading [...] Diagnoses Date/Ti me COLONOSCOPY Colon cancer screening Health Maintenance Due Date Last Done Comments Depression Screening 1960 Osteoporosis Screening-Bone Density Scan 1960 Hepatitis B Screening 1976 Pneumococcal vaccine 65+ (1 of 1 - PCV) 2008 Zoster Vaccine (1 of 2) 2008 Fall Risk Assessment 01/17/2020 01/16/2019 DTaP/Tdap/Td Vaccine (3 - Td or Tdap) 11/23/2022 11/23/2012, 03/20/2009 Well Visit 65+ 2023 Breast Cancer Screening-Mammogram 01/06/2025 01/07/2024, 12/09/2022, 09/01/2021, Additional history exists Influenza Vaccine (Season Ended) 2025 07/05/2020, 05/24/2018, 05/08/2016, Additional history exists Colon Cancer Screening-Colonoscopy 09/16/2025 09/16/2015 Colon Cancer Screening-CT Colonography Discontinued 09/16/2015 Colon Cancer Screening-DNA Stool Discontinued 09/16/19 16 Colon Cancer Screening-FIT Discontinued 09/16/2015 Colon Cancer Screening-Sigmoidoscopy Discontinued 09/16/2015 Hepatitis C Screening Completed 02/25/2021 Goals Goal Patient Goal Type Associated Problems Recent Progress Patient-Stated? Author Med Mgmt Goal - Patient will understand importance of following medication regimen and will take appropriate steps to maintain regimen ACO Care Management Improving( 9:09 AM CDT) Skyla Alonzo Note: Problem: Medication management Interventions: - Assess [...] (rather than stopping them without telling anyone). [facility] Hypertension Care Plan Chronic Care Management No [...] Drink more water Diet Improving( 10:02 AM LINEN SUPERVISOR) Stu Chiang RN Procedures Procedure Name Priority [...] compared to prior imaging studies performed at [facility] on 05/08/2016, 06/25/2017, 07/28/2018, 09/26/2019, 07/31/2020, 09/01/2021 [...] compared to prior imaging studies performed at [facility] on 05/08/2016, 06/25/2017,07/28/2018, 09/26/2019, 07/31/2020, 09/01/2021 and [...] OVERALL FINAL ASSESSMENT: BI-RADS CATEGORY 2: Benign. us Dulce Pryor NP IMG MAMMO PROCEDURES Zulma l Result * Hepatitis C (HCV) RNA PCR, quantitative (02/25/2021 4:22 PM CDT) HCV RNA result Not Detected ALANNAH MACIEL Comment: Interpretive data: The quantifiable range of this assay is 15 IU/mL to 100,000,000 IU/mL (1.18 log IU/mL to 8.00 log IU/mL). Testing was performed by the [employer] AmpliPrep/LEONIDAS TaqMan HCV Test version 2.0 ([employer] Testing performed at [facility] Current Interpretive Data was last revised on 2015. Blood specimen (specimen) 02/25/2021 4:22 PM CDT 02/25/2021 4:22 PM CDT us Shahla Scruggs MD LAB MICROBIOLOGY - GENERAL OR DERABLES Final Result ALANNAH MACIEL [facility] [place] [address] * COLONOSCOPY REPORT (09/16/2015) Anatomical Region Laterality Modality Other Narrative 09/16/2015 Ordered by an unspecified provider. us Historical Provider MD ARGUETA PROCEDURE ORDERABLES F inal Result from Last 3 Months or Most Recently Relevant to Health Maintenance Insurance [facility] CHOICE PLUS [facility] MEDICARE ADVANTAGE [facility] MEDICARE ADVANTAGE Advance Directives For more information, please contact: [phone] * Full Code (Latest Code Status on File) Date Activated Date Inactivated Comments 01/23/2019 9:09 AM 01/23/2019 1:56 PM Care Teams Trimmer Sorter Relationship Specialty Start Date End Date Karma Ledezma MD [address] [address] PCP - General 01/09/23
--- OUTSIDE RECORDS SUMMARY | 2024-11-10 07:40 | XMS_ITS | Encounter Summary ---
Author Organization [facility] Healthcare Address [address] [place] [address] Care Team Providers Care Archery Instructor Name Role Phone Karma Ledezma MD Primary Care Provide r Encounter Details Date Type Department Care Team (Late st Contact Info) Description 04/02/2023 Telephone [facility] Primary Care Medicine Clinic [address] [facility] [address] [place] [address] Cornelius Hurtado Social History Tobacco Use Types Packs/Day Years [...] and Family Not on file 04/13/2019 Attends Buddhist Services Not on file 04/13 Active Member [...] on file Legal Sex Female 12:42 AM SAAS ARCHITECT Gender Identity Not on file Sexual Orientation [...] (rather than stopping them without telling anyone). [facility] Hypertension Care Plan Chronic Care Management No change(04/18 9:09 AM CDT) Adrianna Way, CHARLES Note: Problem: Hypertension Goals: 1. Meet age [...] Drink more water Diet Improving( 10:02 AM SAAS ARCHITECT) No Stu East RN documented as of this encounter Visit Diagnoses Not on filedocumented in this encounter Care Teams Archery Instructor Relationship Specialty Start Date End Date Karma Ledezma MD [address] [address] PCP - General 01/09/23 documented as of this encounter
--- OUTSIDE RECORDS SUMMARY | 2024-11-10 07:40 | XMS_ITS | Encounter Summary ---
Author Organization [facility] Address [facility] [place] [address] Care Team Providers Care Transition Mgr Rn Name Role Phone Claudine Ramsey MD Primary Care Provider [phone] Ernesto Fitzpatrick MD Unavailable Unavailable Annalisa Lal MD Primary Care Provider [phone] Annalisa Lal MD Primary Care Provider [phone] Annalisa Lal MD Primary Care Provider [phone] Claudine Ramsey MD Primary Care Provider [phone] Encounter Details Date Type Department Care Team (Late st Contact Info) Description 12/01/2016 Abstract [facility] AT [address] [address] Yobany Garcia MA Social History Tobacco Use Types Packs/Day Years Used Date Smoking Tobacco: Never Smokeless Tobacco: Never Alcohol Use Standard Drinks/Week Comments No 0 (1 standard drink = 0.6 oz pur e alcohol) Comments Unknown Sex and Gender Information Value Date Recorded Sex Assigned at Not on file Legal Sex Female 8:46 AM CDT Gender Identity Not on file Sexual Orientation Not on file documented as of this encounter Plan of Treatment Not on file documented as of this encounter Procedures Procedure Name Priority Date/Time Associated Diagnosis Comments COMPREHENSIVE METABOLIC PANEL Routine 11/26/2016 LIPID PANEL Routine 11/26/2016 documented in this encounter Results * (ABNORMAL) COMPREHENSIVE METABOLIC PANEL (11/26/2016) SODIUM S/P/B 142 POTASSIUM S/P/B 4.6 CO2 22 CHLORIDE S/P/B 104 GLUCOSE 94 CALCIUM S/P/B 9.9 BUN 12 CREATININE S/P/B 0.73 0.5 - 1.0 EGFR AFR. AMER. 105(A) <=90 EGFR NON-AFR. AMER. 91(A) <=90 ALKALINE PHOSPHATASE S/P/B 106 ALT 15 AST 18 BILIRUBIN TOTAL S/P/B 0.5 ALBUMIN S/P/B 4.4 3.5 - 5.0 TOTAL PROTEIN S/P/B 6.9 GLOBULIN 2.5 11/26/2016 us Doc [facility]AT[facility] Final Result * LIPID PANEL (11/26/2016) CHOLESTEROL 209 HDL 72 TRIGLYCERIDES 73 LDL (CALCULATED) 122 11/26/2016 us Doc [facility] LABORAT[facility] Final Result documented in this encounter Visit Diagnoses Not on filedocumented in this encounter Care Teams Transition Mgr Rn Relationship Specialty Start Date End Date Claudine Ramsey MD PCP - General FAMILY PRACTICE 12/25/15 12/30/16 Annalisa Lal MD [address] [address] PCP - General 01/11/17 03/08/17 Annalisa Lal MD [address] [facility] [address] PCP - General 01/01/17 01/10/17 Annalisa Lal MD [address] [address] PCP - General 12/31/16 12/31/16 Claudine Ramsey MD PCP - General 03/09/17 Ernesto Fitzpatrick MD [employer] CARDIOVASCULAR DISEASE 11/24/16 documented as of this encounter
--- OUTSIDE RECORDS SUMMARY | 2024-11-10 07:40 | XMS_ITS | Encounter Summary ---
Author Organization [facility] Healthcare Address [address] [place] [address] Care Team Providers Care Retail Interior Designer Name Role Phone Karma Ledezma MD Primary Care Provide r Encounter Details Date Type Department Care Team (Late st Contact Info) Description 04/14/2023 Telephone [facility] Primary Care Medicine Clinic [address] [facility] [address] [place] [address] Karma Ledezma MD [address] [facility] [address] [place] [address] Social History Tobacco Use Types Packs/Day Years [...] and Family Not on file 04/13/2019 Attends Anabaptism Services Not on file 04/13 Active Member [...] on file Legal Sex Female 12:42 AM HUMAN RESOURCES ADMINISTRATOR Gender Identity Not on file Sexual Orientation [...] (rather than stopping them without telling anyone). [facility] Hypertension Care Plan Chronic Care Management No [...] Drink more water Diet Improving( 10:02 AM HUMAN RESOURCES ADMINISTRATOR) Stu Chiang RN documented as of this encounter Visit Diagnoses Not on filedocumented in this encounter Care Teams Retail Interior Designer Relationship Specialty Start Date End Date Karma Ledezma MD [address] [address] PCP - General 01/09/23 documented as of this encounter
--- OUTSIDE RECORDS SUMMARY | 2024-11-10 07:40 | XMS_ITS | Data Portability ---
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 Plan of Treatment Reminders Order Date Submit Date Provider Last Modified By Organization Details Last Modified Time Details Appointments None recor ded. Lab urina lysis , dipst ick 2016 017 LUPE In-Office Order, Internal Use Only DO Not Attach Compendium DO Not Attach Compendium, Do Not Delete/merge, [id number] 7 11:36:20 cultu re, urine 2016 017 [facility], [address], [address], [place], [address], 7 06:14:21 CMP, serum or plasm a 2016 017 LUPE [facility], [address], [address], [place], [address], 7 06:14:47 lipid panel , serum 2016 017 LUPE [facility], [address], [address], [place], [address], 7 06:14:48 urina lysis , dipst ick 2016 017 eewig In-Office Order, Internal Use Only DO Not Attach Compendium DO Not Attach Compendium, Do Not Delete/merge, [id number] 7 17:12:[address] refer ral 2016 017 LUPE [facility], [address] [facility], [address], [address], 7 09:35:29 Procedures None recor ded. Surgeries None recor ded. Imaging XR, knee 2016 017 [facility] ([facility]), [address], [place], [address], 7 18:01:09 Medication Orders nitro furan toin monoh ydrat e/mac rocry stals 100 mg capsu le 2016 017 [id number], [address] [place], [address], 7 11:15:16 omepr azole 20 mg capsu le,de layed relea se 2016 017 [id number], [address] [facility] [address] [place], [address], 7 17:12:50 Patient TargetsNo targets recorded. Patient Instructions Encounter Date Encounter Id Patient Instructions Last Modified By Organization Details Last Modified Time 11/19/2016 [id number] gastroesophageal reflux disease (GERD): care instructions eewig Not available 11/19/2016 17:12:50 Will sign RADHA fr om Dr. Annalisa Hernandez - last 2 office notes, any imaging, mammograms, colonoscopy (was in 2015) note, recent labs, vaccine record Patient states that she has had lymph nodes removed from her left breast and has had biopsy - patient states that she follows with a Dr. Adam for oncology yearly eewig Not available 11/19/2016 16:12:33 03/25/2017 [id number] pulmonary functi on test* eewig Not available 04/22/2017 14:25:26 Schedule WWE eewig Not available 11:28:18 04/27/2017 [id number] Schedule an appointment to discuss PFTs and possibly initiate inhalers eewig Not available 04/27/2017 11:54:14 Reason for Referral Waste Specialist Referral for Dy spnea on exertion Referring Physician: Genesis Das, Family Medicine, Encounter Date: 11/19/2016 Results Created Date Observation Date Name Description Value Unit Range Abnormal Flag Note LastModifiedBy Organization Detail LastModifiedTime 03/25/2003/25/2017 urina lysis , dipst ick Leukocytes Negati ve Not Available In-Office Order Internal Use Only DO Not Attach Compendium DO Not Attach Compendium, Do Not Delete/merge, [id number] 03/25/2017 11:20:27 03/25/20 17 03/25/2017 urina lysis , dipst ick Nitrite negati ve Not Available In-Office Order Internal Use Only DO Not Attach Compendium DO Not Attach Compendium, Do Not Delete/merge, [id number] 03/25/2017 11:20:27 03/25/2003/25/2017 urina lysis , dipst ick Urobilinogen .2 Not Available In-Of fice Order Internal Use Only DO Not Attach Compendium DO Not Attach Compendium, Do Not Delete/merge, [id number] 03/25/2017 11:20:27 03/25/2003/25/2017 urina lysis , dipst ick Protein Negati ve Not Available In-Office Order Internal Use Only DO Not Attach Compendium DO Not Attach Compendium, Do Not Delete/merge, [id number] 03/25/2017 11:20:27 03/25/2003/25/2017 urina lysis , dipst ick pH 5.0 Not Available In-Office Order Internal Use Only DO Not Attach Compendium DO Not Attach Compendium, Do Not Delete/merge, [id number] 03/25/2017 11:20:27 03/25/2003/25/2017 urina lysis , dipst ick Blood Hemoly zed: Trace Not Available In-Office Order Internal Use Only DO Not Attach Compendium DO Not Attach Compendium, Do Not Delete/merge, [id number] 03/25/2017 11:20:27 03/25/2003/25/2017 urina lysis , dipst ick Specific [place] 1.030 Not Available In-Off ice Order Internal Use Only DO Not Attach Compendium DO Not Attach Compendium, Do Not Delete/merge, 03/25/2017 11:20:27 03/25/20 17 03/25/2017 urina lysis , dipst ick Ketone Negati ve Not Available In-Office Order Internal Use Only DO Not Attach Compendium DO Not Attach Compendium, Do Not Delete/merge, 03/25/2017 11:20:27 03/25/20 17 03/25/2017 urina lysis , dipst ick Bilirubin Negati ve Not Available In-Office Order Internal Use Only DO Not Attach Compendium DO Not Attach Compendium, Do Not Delete/merge, 03/25/2017 11:20:27 03/25/20 17 03/25/2017 urina lysis , dipst ick Glucose Negati ve Not Available In-Office Order Internal Use Only DO Not Attach Compendium DO Not Attach Compendium, Do Not Delete/merge, 03/25/2017 11:20:27 03/25/2003/25/2017 urina lysis , dipst ick Appearance Clear Not Available In-Offi ce Order Internal Use Only DO Not Attach Compendium DO Not Attach Compendium, Do Not Delete/merge, 03/25/2017 11:20:27 03/25/2003/25/2017 urina lysis , dipst ick Color Yellow Not Available In-Office Order Internal Use Only DO Not Attach Compendium DO Not Attach Compendium, Do Not Delete/merge, 03/25/2017 11:20:27 11/20/1911/19/2016 urina lysis , dipst ick Leukocytes Small Not Available In-Offi ce Order Internal Use Only DO Not Attach Compendium DO Not Attach Compendium, Do Not Delete/merge, 11/19/2016 16:06:02 11/20/19 17 11/19/2016 urina lysis , dipst ick Nitrite negati ve Not Available In-Office Order Internal Use Only DO Not Attach Compendium DO Not Attach Compendium, Do Not Delete/merge, 11/19/2016 16:06:02 11/20/1911/19/2016 urina lysis , dipst ick Urobilinogen .2 Not Available In-Of fice Order Internal Use Only DO Not Attach Compendium DO Not Attach Compendium, Do Not Delete/merge, 11/19/2016 16:06:02 11/20/19 17 11/19/2016 urina lysis , dipst ick Protein 2000+ Not Available In-Office Order Internal Use Only DO Not Attach Compendium DO Not Attach Compendium, Do Not Delete/merge, 11/19/2016 16:06:02 11/20/19 17 11/19/2016 urina lysis , dipst ick pH 7.0 Not Available In-Office Order Internal Use Only DO Not Attach Compendium DO Not Attach Compendium, Do Not Delete/merge, 11/19/2016 16:06:02 11/20/19 17 11/19/2016 urina lysis , dipst ick Blood Negati ve Not Available In-Office Order Internal Use Only DO Not Attach Compendium DO Not Attach Compendium, Do Not Delete/merge, 11/19/2016 16:06:02 11/20/19 17 11/19/2016 urina lysis , dipst ick Specific [place] 1.010 Not Available In-Off ice Order Internal Use Only DO Not Attach Compendium DO Not Attach Compendium, Do Not Delete/merge, 11/19/2016 16:06:02 11/20/19 17 11/19/2016 urina lysis , dipst ick Ketone Large (160) Not Available In-Office Order Internal Use Only DO Not Attach Compendium DO Not Attach Compendium, Do Not Delete/merge, 11/19/2016 16:06:02 11/20/19 17 11/19/2016 urina lysis , dipst ick Bilirubin Negati ve Not Available In-Office Order Internal Use Only DO Not Attach Compendium DO Not Attach Compendium, Do Not Delete/merge, 11/19/2016 16:06:02 11/20/19 17 11/19/2016 urina lysis , dipst ick Glucose Negati ve Not Available In-Office Order Internal Use Only DO Not Attach Compendium DO Not Attach Compendium, Do Not Delete/merge, 11/19/2016 16:06:02 11/20/19 17 11/19/2016 urina lysis , dipst ick Appearance Slight ly Cloudy Not Available In-Office Order Internal Use Only DO Not Attach Compendium DO Not Attach Compendium, Do Not Delete/merge, 11/19/2016 16:06:02 11/20/19 17 11/19/2016 urina lysis , dipst ick Color Pale Yellow Not Available In-Office Order Internal Use Only DO Not Attach Compendium DO Not Attach Compendium, Do Not Delete/merge, 11/19/2016 16:06:02 11/27/19 17 11/27/2016 CMP, serum or plasm a glucose, serum 94 mg/dL 65-99 Not Available [facility]) [address] [place], [address], 11/27/2016 06:14:47 11/27/19 17 11/27/2016 CMP, serum or plasm a BUN 12 mg/dL 6-24 Not Available [facility] ([facility]) [address] [place], [address], 11/27/2016 06:14:47 11/27/19 17 11/27/2016 CMP, serum or plasm a creatinine, serum 0.73 mg/dL 0.57-1 .00 Not Available [facility] ([facility]) [address] [place], [address], 11/27/2016 06:14:47 11/27/19 17 11/27/2016 CMP, serum or plasm a eGFR if nonafricn AM 91 mL/mi n/1.7 3 >59 Not Available [facility] ([facility]) [address] [place], [address], 11/27/2016 06:14:47 11/27/19 17 11/27/2016 CMP, serum or plasm a eGFR if africn AM 105 mL/mi n/1.7 3 >59 Not Available [facility] ([facility]) [address] [place], [address], 11/27/2016 06:14:47 11/27/19 17 11/27/2016 CMP, serum or plasm a BUN/creatini ne ratio 16 9-23 Not Available [facility] ([facility]) [address] [facility] [place], [address], 11/27/2016 06:14:47 11/27/19 17 11/27/2016 CMP, serum or plasm a sodium, serum 142 mmol/ L 134-14 4 Not Available [facility] ([facility]) [address] [facility] [place], [address], 11/27/2016 06:14:47 11/27/19 17 11/27/2016 CMP, serum or plasm a potassium, serum 4.6 mmol/ L 3.5-5. 2 Not Available [facility] ([facility]) [address] [place], [address], 11/27/2016 06:14:47 11/27/1911/27/2016 CMP, serum or plasm a chloride, serum 104 mmol/ L 96-106 Not Available [facility] ([facility]) [address] [facility] [place], [address], 11/27/2016 06:14:47 11/27/19 17 11/27/2016 CMP, serum or plasm a carbon dioxide, total 22 mmol/ L 18-29 Not Available [facility] ([facility]) [address] [place], [address], 11/27/2016 06:14:47 11/27/19 17 11/27/2016 CMP, serum or plasm a calcium, serum 9.9 mg/dL 8.7-10 .2 Not Available [facility] ([facility]) [address] [place], [address], 11/27/2016 06:14:47 11/27/19 17 11/27/2016 CMP, serum or plasm a protein, total, serum 6.9 g/dL 6.0-8. 5 Not Available [facility] ([facility]) [address] [place], [address], 11/27/2016 06:14:47 11/27/1911/27/2016 CMP, serum or plasm a albumin, serum 4.4 g/dL 3.5-5. 5 Not Available [facility] ([facility]) [address] [place], [address], 11/27/2016 06:14:47 11/27/1911/27/2016 CMP, serum or plasm a globulin, total 2.5 g/dL 1.5-4. 5 Not Available [facility] ([facility] [address] [facility] [place], [address], 11/27/2016 06:14:47 11/27/19 17 11/27/2016 CMP, serum or plasm a A/G ratio 1.8 1.2-2. 2 Not Available [facility] ([facility] [address] [facility] [place], [address], 11/27/2016 06:14:47 11/27/1911/27/2016 CMP, serum or plasm a bilirubin, total 0.5 mg/dL 0.0-1. 2 Not Available [facility] ([facility] [address] [facility] [place], [address], 11/27/2016 06:14:47 11/27/1911/27/2016 CMP, serum or plasm a alkaline phosphatase, S 106 IU/L 39-117 Not Available [facility] [address] [facility] [place], [address], 11/27/2016 06:14:47 11/27/1911/27/2016 CMP, serum or plasm a AST (SGOT) 18 IU/L 0-40 Not Available [facility] ([facility] [address] [facility] [place], [address], 11/27/2016 06:14:47 05/04/20 17 11/27/2016 CMP, serum or plasm a ALT (SGPT) 15 IU/L 0-32 Not Available [facility] ([facility]) [address] [place], [address], 11/27/2016 06:14:47 11/27/19 17 11/27/2016 lipid panel , serum cholesterol, total 209 mg/dL 100-19 9 above high normal Not Available [facility] ([facility]) [address] [place], [address], 11/27/2016 06:14:48 11/27/1911/27/2016 lipid panel , serum triglyceride s 73 mg/dL 0-149 Not Available [facility] ([facility]) [address] [place], [address], 11/27/2016 06:14:48 11/27/1911/27/2016 lipid panel , serum HDL cholesterol 72 mg/dL >39 Not Available [facility] ([facility]) [address] [place], [address], 11/27/2016 06:14:48 11/27/1911/27/2016 lipid panel , serum VLDL cholesterol rayshawn 15 mg/dL 5-40 Not Available [facility] ([facility]) [address] [place], [address], 11/27/2016 06:14:48 11/27/1911/27/2016 lipid panel , serum LDL cholesterol calc 122 mg/dL 0-99 above high normal Not Available [facility] ([facility]) [address] [place], [address], 11/27/2016 06:14:48 11/27/1911/27/2016 lipid panel , 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 chol/HDL ratio 2.9 ratio _unit s 0.0-4. 4 T. CHOL/ HDL RATIO MEN WOMEN 1/2 AVG.R ISK 3.4 3.3 AVG.R ISK 5.0 4.4 2X AVG.R ISK 9.6 7.1 3X AVG.R ISK 23.4 11.0 Not Available [facility] ([facility]) [address] [facility], [place], [address], 11/27/2016 06:14:48 03/25/20 17 03/27/2017 cultu re, urine urine culture, routine FINAL REPORT Not Available [facility] ([facility]) [address] [facility], [place], [address], 03/27/2017 06:14:21 03/25/20 17 03/27/2017 cultu re, urine result 1 NO GROWTH Not Available [facility] ([facility]) [address] [facility], [place], [address], 03/27/2017 06:14:21 01/08/20 17 01/01/2017 trans -thor acic echoc ardio gram (TTE) (PROC ) No observ ation record ed. [facility] [address], [place], [address], 01/11/2017 17:56:19 01/08/20 17 01/01/2017 US, doppl er echoc ardio gram No observ ation record ed. [email or web address] Not Available 12/24 10:25:31 02/03/20 17 12/31/2016 eder r monit or No observ ation record ed. [facility] [address] [facility] [address], [place], [address], 02/03/2017 11:17:43 04/17/20 17 04/16/2017 pulmo nary funct ion test* No observ ation record ed. [facility] [address], [place], [address], 04/27/2017 11:41:50 Result Notes None recorded. Problems Name Problem SNOMED Code Status Onset Date Resolution Date Notes Provider Name and Address Organization Details Recorded Time Essential hypertension 39933646 Active 2016 Genesis Das PA-C Attn: Accounting ,[address] [facility], [place], [address] , [facility] 7 15:57:05 Glaucoma 63070969 Active 2016 Genesis Das PA-C Attn: Accounting ,[address] [place], [address] , [facility] 7 15:57:26 Dyspnea on exertion 93828319 Active 2016 Genesis Das PA-C Attn: Accounting ,[address] [place], [address] , [facility] 7 16:10:10 Obesity 440441897 Active 2016 Genesis Das PA-C Attn: Accounting ,[address] [place], [address] , [facility] 7 16:10:13 Increased frequency of urination 837917726 Active 2016 Genesis Das PA-C Attn: Accounting ,[address] [place], [address] , [place] [facility] 7 16:10:15 Gastroesophag eal reflux disease 095110289 Active 2016 Genesis Das PA-C Attn: Accounting ,[address] [place], [address] , [place] [facility] 7 16:10:17 Adult health examination Active 2016 Genesis Das PA-C Attn: Accounting ,[address] [place], [address] , [facility] 7 17:07:35 Urinary tract infectious disease 71120821 Active 2016 Genesis Das PA-C Attn: Accounting ,[address] [place], [address] , [facility] 7 17:07:42 Knee pain Active 2016 Genesis Das PA-C Attn: Accounting ,[address] [place], [address] , [facility] 7 17:07:51 Allergic rhinitis 43619195 Active 2016 Genesis Das PA-C Attn: Accounting ,[address] [place], [address] , [facility] - [facility] 7 11:27:45 Problem Notes None recorded. Procedures Surgical History Date Name Laterality Status Provider Name and Address Organization Details Recorded Time 12/25/19 15 Total hysterectomy completed Genesis Das PA-C Attn: Accounting, [place], [address], [facility] 04/27/2017 11:31:17 Appendectomy completed Laura García MA [place] - [facility] 11/19/2016 15:49:03 Eye Surgery completed Laura García MA [facility] 11/19/2016 15:49:12 Imaging Results Imaging Date Name Status LastModified by Organization Details LastModified Time 01/01/2017 trans-thoracic echocardiogram (TTE) (PROC) completed [facility] [place], [address], 01/11/2017 17:56:19 01/01/2017 US, doppler echocardiogram [email or web address] [id number] Information not available 01/08/2017 10:25:31 12/31/2016 holter monitor completed [facility] [address] [facility] [address] [facility], [place], [address], 02/03/2017 11:17:43 04/16/2017 pulmonary function test* completed [facility] [address] [place], [address], 04/27/2017 11:41:50 Procedure Notes None recorded. Medical Equipment None Reported. Allergies No known drug allergies Medications Name Sig Start Date Stop Date Status Note LastModified by Organization Details LastModified Time latanoprost 0.005 % eye drops active Not Available Not Available Not Available neomycin-vera ymyxin-hydro lamine 3.5 mg/mL-10,000 unit/mL-1 % ear solution 11/19 completed Not Available Not Available Not Available amlodipine 5 mg tablet active Not Available Not Available No t Available gabapentin 300 mg capsule 11/19 completed Not Available Not Available Not Available omeprazole 20 mg capsule,mercy yed release Take 1 capsule every day by oral route. 2016 active Not Available Not Available Not Avai lable dorzolamide 22.3 mg-timolol 6.8 mg/mL eye drops active Not Available Not Available No t Available furosemide 20 mg tablet 11/19 completed Not Available Not Available Not Available naproxen 500 mg tablet 11/19 completed Not Available Not Available Not Available nitrofuranto in monohydrate/ macrocrystal s 100 mg capsule Take 1 capsule twice a day by oral route for 5 days. 03/25 completed Not Available Not Available Not Available Vitals Date Recorded Body height Body weight Body mass index (BMI) Oxygen saturation Oxygen saturation in Arterial blood by Pulse oximetry Heart rate Respiratory rate Body temperature Systolic blood pressure Diastolic blood pressure Provider Name and Address Organization Details Last Updated DateTime 7 175.26 cm 097093. 51 g 32.6 kg/m2 100 % 100 % 78 /min 22 /min 98.2 [degF] 136 mm[Hg] 72 mm[Hg] Laura García MA [place] - [facility] 7 15:45:44 Date Recorded Body height Body mass index (BMI) Body weight Oxygen saturation Oxygen saturation in Arterial blood by Pulse oximetry Heart rate Respiratory rate Body temperature Systolic blood pressure Diastolic blood pressure Provider Name and Address Organization Details Last Updated DateTime 7 175.26 cm 32.3 kg/m2 82288.9 4 g 98 % 98 % 84 /min 16 /min 98.3 [degF] 140 mm[Hg] 80 mm[Hg] Michael LEVI - [facility] 7 10:52:31 Date Recorded Body height Body mass index (BMI) Body weight Heart rate Respiratory rate Body temperature Systolic blood pressure Diastolic blood pressure Provider Name and Address Organization Details Last Updated DateTime 7 175.26 cm 32.5 kg/m2 56555.3 2 g 76 /min 12 /min 98.2 [degF] 110 mm[Hg] 64 mm[Hg] Michael Ameya [facility] 7 11:22:36 Social History Question Answer Notes LastModified by Organizat ion Details LastModified Time Tobacco Smoking Status Never Smoker [facility] [place], [facility] 11/19/2016 15:46:59 Do You Have An Advance Directive? No Information not available 11/19/2016 What Is Your Level Of Alcohol Consumption? None Information not available 11/19/2016 Are You Blind Or Do You Have Difficulty Seeing? No Information not available 11/19/2016 What Is Your Level Of Caffeine Consumption? Heavy Information not available 11/19/2016 How Much Tobacco Do You Chew? None Information not available 11/19/2016 Are You Currently Employed? Yes Information not available 11/19/2016 What Type Of Diet Are You Following? REGULAR Information not available 11/19/2016 Which Illicit Or Recreational Drugs Have You Used? 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 No Information not available 11/19/2016 Hard Of Hearing Or Deaf In One Or Both Ears? No Information not available 11/19/2016 Legally Blind In One Or Both Eyes? No Information no t available 11/19/2016 Live Alone Or With Others? With Others Information not available 11/19/2016 What Was The Date Of Your Most Recent Tobacco Screening? 04/27/2017 Information not available 02/16/2019 How Many Children Do You Have? 0 Information not available 11/19/2016 Do You Use Protection During Sex? No Information not available 11/19/2016 Seat Belts Used Routinely Yes Information not available 11/19/2016 Are You Sexually Active? No Information not available 11/19/2016 Smoke Alarm In Home Yes Information not available 11/19/2016 Are You Passively Exposed To Smoke? No Information no t available 11/19/2016 How Much Tobacco Do You Smoke? No Information not available 11/19/2016 General Stress Level Medium Information not available 11/19/2016 Do You Use Sunscreen Routinely? No Information not available 11/19/2016 Sex: Unknown Functional Status Question Answer Note LastModified by Organizat ion Details LastModified Time Do you have difficulty walking or climbing stairs? No Information not available 11/19/2016 Do you have difficulty doing errands alone? No Information not available 11/19/2016 Are you able to care for yourself? Yes Information n ot available 11/19/2016 Do you have difficulty dressing or bathing? No Information not available 11/19/2016 What is your exercise level? Moderate Information not available 11/19/2016 Mental Status Question Answer Note LastModified by Organization D etails LastModified Time Do you have difficulty concentrating, remembering or making decisions? No Information no t available 11/19/2016 Family History Relationship Description Onset Age of this Age Resolved Age Notes LastModified by Organization Details LastModified Time Paternal Aunt Malignant tumor of breast Not available 2016 15:46:50 Father Hypertensive disorder eewig Not available 2016 11:22:59 Father Diabetes mellitus eewig Not available 2016 11:23:09 Medical History No medical history recorded. Gynecological History Statement/Question Response If Post Menopausal, Age at Menopause 55 Current Control Method Hysterectom y Obstetrics History GPAL:G 0 P 0 0 0 0 Immunizations Vaccine Type Date Status Note Provider Nam e and Address Organization Details Recorded Time Td(adult) unspecified formulation 11/23/2012 completed Laura García MA [facility], [place] - [facility] 11/19/2016 15:45:30 Past Encounters Encounter ID Performer Location Encounter Start Date Encounter Closed Date Diagnosis/Indication Diagnosis SNOMED-CT Code Diagnosis ICD10 Code Diagnosis Note [id number] ROYA Priest (Adult Med) [address] [place] [phone] 11/19/2016 15:16:41 11/19/2016 18:01:09 Obesity 769270222 E66.9 Advised 30 minutes of exercise 5 days/week Advised to not drink her calories Advised 3 balanced meals/day with plenty of fruits and vegtables Adult [facility] th examination 802906897 Z00.01 56YA AA female here to establish care. Patient is not a very good historian and when asked about anything she has been diagnosed with, she was very confused as to the questions. States that she had been diagnosed with breast cancer, but then said she wasn't. States that she does not know much about her medical history either. Dyspnea on exertion 6084 5006 R06.09 Patient states that she had a test done once a few months ago but did not know much beyond that Increased frequency of urination [id number] R35.0 Gastroesop hageal reflux disease [id number] K21.0 Knee pain 54771364 M25.5 61 right knee - will begin with xray Urinary tr act infectious disease [id number] N39.0 Glaucoma 24245013 H40.[address] Rodriguez at [facility] Essential hypertension [id number] I10 136/72 - WNL - c/w amlodipine 5mg [id number] ROYA Priest (Adult Med) [address] [place] [address] 03/25/2017 10:26:33 03/25/2017 11:42:05 Allergic rhinitis 30611571 J30.9 Cannot do antihistam yair d/t glaucomaAd vised nasal saline rinses Dyspnea on exertion 6084 5006 R06.09 Patient states that she had a test done once a few months ago but did not know much beyond thatPer patient, had cardiology w/u and was negativeWi ll check PFTs Increased frequency of urination [id number] R35.0 UA negative - send for cultureAdv ised to increase water intakeStay away from sugary drinks Obesity [id number] E66.9 Advised 30 minutes of exercise 5 days/week Advised to not drink her calories Advised 3 balanced meals/day with plenty of fruits and vegetables Glaucoma 99333106 H40.[address] Rodriguez at [facility] Essential hypertension 10519851 I10 140/80 - basically WNL, NAD - c/w amlodipine 5mg [id number] ROYA Priest (Adult Med) [address] [place] [address] 04/27/2017 11:05:08 04/27/2017 13:20:39 Gynecologic examination 53257894 Z01.419 no sample taken for pap smear Screening for malignant neoplasm of breast [id number] Z12.31 Per patient, she just got a reminder letter to schedule an appointmen t for her mammogram at [place]. States that she will do so and then have the results sent hereAdvise d patient that if she for some reason cannot obtain a mammogram through them, I can order her one has well. Uterine cervix absent 24 [id number] Z90.710 Health Concerns Section Related Observation LastModified by Organization Detai ls LastModified Time None Recorded Concern Status LastModified by Organization Details LastModified Time None Recorded Advance Directives Directive N: Payers Encounter Date Sequence Insurance Name Policy Number Policy Onofre Covered Member ID Onofre Member ID Guarantor Name 11/19/2016 [address] [id number] Ankitaraf Soni 03/25/[address] [id number] Ankitaraf Soni 04/27/[address] [id number] Ankitaraf Soni Notes Date Note Type Note Provider Name and Address Organization Details Recorded Time 11/19/2016 text/html DyspneaReported bypatient.Quality:dysp keyanna(on exertion) Severity:mild Duration:for 3 months Onset/Timing:daily (whenever she is moving) Context:with activity Alleviating Factors:relieved with rest Aggravating Factors:activity Associated Symptoms:no chest pain; no orthopnea; no PND; no fever; no chills; no wheezing; no dietary indiscretion; no sputum production; no hemoptysis; no weight gain; no dyspepsia; no decrease in exercise capacity;palpitationsN otes:States that she had a heart test done once and it was normal States that she has guardianship of a 14YO and 16YOKneeReported bypatient.Location[facility] Quality:aching; throbbing Severity:moderate Duration:months Timing:chronic Context:overuse Alleviating Factors:rest Aggravating Factors:standing; bending/squatting; ROM Associated Symptoms:no weakness; no numbness; no tingling; no redness; no warmth; no ecchymosis; no buckling; no grinding; no instability; no radiation down leg; no drainage; no fever; no chills; no weight loss; no change in bowel/bladder habits;swelling;catchi ng/locking;popping/cli cking Previous Surgery:none Previous Injections:helped significantly Previous PT:none Work Related:yes (from overuse) Working:regular duty Here to establish care. States that she was followed by Dr. Aviles; however, she states that the drive to [facility] is just too long and that is why she is switching. States that she sees an oncologist at [facility] (does not know the name) d/t hx/o breast cancer(?), see an opthalmologist d/t glaucoma. Genesis Das PA-C Attn: [address] [place], [address], [place] [facility] 11/19/2016 17:13:32 03/25/2017 text/html Urinary FrequencyReported bypatient.Quality:symp toms worse during the day Duration:every 15 minutes Onset/Timing:actual date: (1 month) Context:success with short term antibiotics Alleviating Factors:antibiotics Aggravating Factors:caffeine Associated Symptoms:no abdominal pain; no back pain; no chills; no constipation; no diarrhea; no dribbling; no pain with urination; normal emptying of bladder; no blood in the urine; no hesitancy; normal libido; no nausea; no vomiting; no nocturia; no urine odor; no straining; no incontinence; no fever; no feelings of urgency; no urge incontinenceNotes:not drinking much waterdrinking coffee and sweet tea 57YO female here for sinus congestion. Complains of nasal congestion, itchy eyes, and sore throat for one week. States that she has rhinorrhea. Denies sinus pressure. Denies n/v/fever/chills. Patient states that she saw cardiology and they ruled out any cardiac reasons for NETTLES and advised doing a pulmonology w/u. SHe is also c/o increase frequency of urination x 1 month. Genesis Das PA-C Attn: [address] [facility], [place], [address], [facility] 03/25/2017 13:31:23 04/27/2017 text/html Annual GYNReport ed bypatient.Menstrual cycle:s/p hysterectomy in 2014 Urinary symptoms:No hematuria; No incontinence Vulva:No genital lesion Vagina:Normal vaginal discharge Breast:No breast lump; No nipple discharge;Breast pain(fluctuating breast pain throughout the month) Current Contraception:Not sexually active Menopausal Symptoms:Normal vaginal lubrication;Hot flashes Psychological symptoms:No depression;Anxiety(sta randa that she has a lot of that in her life with 'people') Preventive measures:Encourage self breast examination; Encourage regular exercise; Encourage no tobacco use; Encourage regular mammograms starting age [age]Yo AA female here for WWE. Per patient, she had a DONALDO in 2014 - states that she originally had her ovaries removed d/t ovarian tumors and had a partial hysterectomy and then she had a DONALDO following that d/t bleeding.Patient states that she was told in the past that she had had breast cancer in her left breast - but cannot remember any details to this other than they removed the lump and a few lymph nodes. States that she is followed by a breast surgeon at [facility] and that she always sees the surgeon in April and has a mammogram directly following the appointment Genesis Das PA-C Attn: [address] [facility], [place], [address], [facility] 04/27/2017 11:54:43 OBGyn Episode No OBEpisode recorded.
--- OUTSIDE RECORDS SUMMARY | 2024-11-10 07:40 | XMS_ITS | Clinical Summary ---
Author Organization [facility] Address [address] [place] [address] Care Team Providers Care Marble Polisher Name Role Phone Unknown, Provider Primary Care Provider Unavaila ble Source Comments [facility],non-owned Affiliates and Associated Physician Practices is amultiple site organization consisting of ambulatory clinics and hospital sitesin [place], [place], [place] and [place]. This disclosure is being madepursuant to the Care Everywhere program and may not contain all information available regarding this patient. Last updated 18.[facility] Active Problems Problem Noted Date Diagnosed Date Essential (primary) hypertension 12/24/2015 Gastro-esophageal reflux disease without esophag itis 12/24/2015 Glaucoma 12/24/2015 Family History Medical History Relation Name Comments Hypertension Father Status: d Hypertension Mother Status: d Relation Name Status Comments Father Mother Social History Tobacco Use Types Packs/Day Years Used Date Smoking Tobacco: Never Smokeless Tobacco: Never Alcohol Use Standard Drinks/Week Comments No 0 (1 standard drink = 0.6 oz pur e alcohol) Comments Unknown Sex and Gender Information Value Date Recorded Sex Assigned at Not on file 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 Gender Identity Not on file Sexual Orientation Not on file Last Filed Vital Signs Vital Sign Reading Time Taken Comments Blood Pressure 144/76 01/31/2016 1:12 PM CDT Pulse 72 01/31/2016 1:12 PM CDT Temperature 37.2 C (99 F) 01/31/2016 1:12 PM CDT Respiratory Rate - - Oxygen Saturation - - Inhaled Oxygen Concentration - - Weight 92.1 kg (203 lb) 01/31/2016 1:12 PM CDT Height 175.3 cm (5' 9 ) 12/24/2015 1:02 PM CDT Body Mass Index 29.98 12/24/2015 1:02 PM CDT Plan of Treatment Health Maintenance Due Date Last Done Comments BONE DENSITY TESTING 1960 COLOGUARD (AGES 45-75) - COLON CA SCREENING 1960 COLON MONITORING 1960 COLONOSCOPY - COLON CA SCREENING 1960 CT COLONOGRAPHY - COLON CA SCREENING 1960 Colorectal Cancer Screening 1960 FIT - COLON CA SCREENING 1960 FLEX SIG - COLON CA SCREENING 1960 HEPATITIS C SCREENING 03/18/1976 DTAP/TDAP/TD VACCINES (1 - Tdap) 1977 PNEUMOCOCCAL VACCINE 50+ (1 of 1 - PCV) 2008 ZOSTER VACCINE (1 of 2) 2008 LIPID TESTING 12/23/2020 12/24/2015 COVID-19 VACCINE (1 - season) 2024 DEPRESSION SCREENING 07/26/2024 MEDICARE AWV CALENDAR YEAR 2024 MAMMOGRAM 01/06/2025 01/07/2024, 12/24, 12/09/2022, Additional history exists INFLUENZA VACCINE (Season Ended) 2025 07/05/2020, 05/24/2018, 05/08/2016, Additional history exists Respiratory Syncytial Virus (RSV) Vaccine Pt: or over 60 yrs (1 - 1-dose 75+ series) 2033 HEPATITIS B VACCINE Aged Out No longe r eligible based on patient's age to complete this topic HIB VACCINE Aged Out No longer eligi ble based on patient's age to complete this topic HPV VACCINE Aged Out No longer eligi ble based on patient's age to complete this topic MENINGOCOCCAL (Group B) VACCINE SHARED DECISION-MAKING Aged Out No longer eligible based on patient's age to complete this topic MENINGOCOCCAL GROUPS A/C/Y/W VACCINE Aged Out No longer eligible based on patient's age to complete this topic Procedures Procedure Name Priority Date/Time Associated Diagnosis Comments LIPID PROFILE Routine 12/24/2015 2:54 PM CDT from Last 3 Months or Most Recently Relevant to Health Maintenance Results * (ABNORMAL) LIPID PROFILE (12/24/2015 2:54 PM CDT) Cholesterol Total 202(H) <200 mg/dL [facility] HDL 65 >40 mg/dL [facility] Comment: ATP III Classification of HDL Cholesterol: <40 mg/dL: Considered a major risk factor. >60 mg/dL: Considered a negative risk factor. 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
[2024-11-10 08:10] VITALS: BP 155/77; PULSE 79; RESP 18; O2SAT 100
[2024-11-10] MEDS: ASPIRIN 81 MG CHEWABLE TABLET 324 MG PO (08:14)
[2024-11-10 08:23] VITALS: PULSE 85
[2024-11-10 08:27] LABS: Basophils Percent Auto 0.5 % (0.2-1.2); Eosinophils Absolute Auto 0.2 K/mm3 (0-0.3); Eosinophils Percent Auto 2.6 % (0-4.4); Hematocrit 40.2 % (37.0-47.0); Hemoglobin 12.9 g/dL (12.0-15.0); Immature Granulocyte Absolute 0.02 K/mm3 (0.00-0.031); Immature Granulocyte Percent A 0.3 % (0-0.5); Lymphocytes Absolute Auto 2.73 K/mm3 (0.9-3.2); Lymphocytes Percent Auto 41.8 % (18.3-44.2); Mean Corpuscular HGB Conc 32.1 g/dl (32-36); Mean Corpuscular Hemoglobin 30.6 pg (26-34); Mean Corpuscular Volume 95.3 fl (80-100); Mean Platelet Volume 8.8 fl (7.4-10.4); Monocytes Absolute Auto 0.4 K/mm3 (0.1-0.6); Monocytes Percent Auto 6.6 % (2.6-8.5); Neutrophils Absolute Auto 3.2 K/mm3 (1.3-6.7); Neutrophils Percent Auto 48.2 % (45.5-73.1); Platelet Count Result 289 k/mm3 (150-375); Red Blood Count 4.22 M/mm3 (4.2-5.4); White Blood Count 6.5 K/mm3 (4.5-10.0)
[2024-11-10 08:38] LABS: Alanine Aminotransferase 18 U/L (6-35); Albumin Level 4.4 g/dL (3.5-5.1); Alkaline Phosphatase 109 U/L (38-126); Anion Gap 10 mmol/L (4-12); Aspartate Amino Transferase 24 U/L (14-36); Bilirubin,Total 0.8 mg/dL (0.2-1.3); Blood Urea Nitrogen 16 mg/dL (7-17); Calcium 9.2 mg/dL (8.4-10.2); Carbon Dioxide 25 mmol/L (22-30); Chloride 105 mmol/L (98-107); Estimated CRCL calculation 84 ml/min; Estimated Glomerular Filt Rate > 60; Glucose 89 mg/dL (65-110); INR 0.9; Potassium 4.2 mmol/L (3.4-5.0); Prothrombin Time 12.9 Seconds (11.1-14.7); Sodium 140 mmol/L (137-145)
[2024-11-10 08:46] LABS: NT Pro B Type Natriuretic Pept 102 pg/mL (19.9-100)
[2024-11-10 08:52] LABS: Troponin I < 0.012 ng/mL (0.000-0.034)
[2024-11-10 09:56] VITALS: BP 154/76; PULSE 76; RESP 18; O2SAT 100
--- NOTE | 2024-11-10 11:03 | ECG_ITS ---
Test Date: 2024-11-10 11:09:35 Measurements Intervals [place] Rate: 74 P: 67 TN: 185 QRS: -48 QRSD: 133 T: 84 QT: 414 QTc: 461 Interpretive Statements SINUS RHYTHM LEFT AXIS DEVIATION LEFT BUNDLE BRANCH BLOCK ABNORMAL ECG No previous ECG available for comparison Electronically Signed On 11-10-2024 11:45:28 CDT by Rodrigue Rangel D.O.
[2024-11-10 11:22] LABS: Troponin I < 0.012 ng/mL (0.000-0.034)
--- NOTE | 2024-11-10 12:00 | ED.CHESTPAIN ---
HPI - Chest Pain General Chief Complaint: Chest Pain Stated Complaint: Chest discomfort to back and left arm Time Seen by Provider: 11/10/24 07:39 Source: patient Mode of arrival: ambulatory Limitations: no limitations History of Present Illness HPI narrative: 64-year-old with a history of hypertension, hyperlipidemia here with the complaints of left-sided chest pain which is been on and off for past several days. 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 However she does remember lifting to heavy chairs few days ago and ever since then the pain started she also mentions that she did call her primary doctor who advised her to take muscle relaxers which did not help her much with the pain. He no previous history of CAD. She presently denies any shortness of breath, fever or chills. MD complaint: chest pain Onset (ago): day(s) (5) Timing of current episode: constant Onset: during exertion Pain location: left chest Pain radiation: back Severity: moderate Quality: aching Relieving factors: movement Treatment prior to arrival: none Risk Factors Coronary artery disease risk factors: none Related Data Home Medications ?Medication ?Instructions ?Recorded ?Confirmed ?Last Taken ?Type amlodipine 10 mg tablet 10 mg PO DAILY 06/05/21 08/18/21 Unknown History atorvastatin 20 mg tablet 20 mg PO DAILY 06/05/21 08/18/21 Unknown History diclofenac sodium 1 % topical gel 2 g topical QID PRN Pain 06/05/21 08/18/21 Unknown History (Arthritis Pain (diclofenac)) dorzolamide 22.3 mg-timolol 6.8 1 drp EACH EYE QHS 06/05/21 08/18/21 Unknown History mg/mL eye drops latanoprost 0.005 % eye drops 1 drp EACH EYE DAILY 06/05/21 08/18/21 Unknown History losartan 100 mg tablet 100 mg PO DAILY 06/05/21 08/18/21 Unknown History Allergies Allergy/AdvReac Type Severity Reaction Status Date / Time No Known Allergies Allergy Verified 08/18/21 10:15 Review of Systems Review of Systems: All systems reviewed & are unremarkable except as noted in HPI and below Constitutional: Constitutional: Reports no additional constitutional complaints Eyes: Eyes: Reports no additional eye complaints ENT: Reports system reviewed and no additional complaints, except as documented Cardiovascular: Cardiovascular: Reports as per HPI Respiratory: Respiratory: Reports no additional respiratory complaints Gastrointestinal: Gastrointestinal: Reports no additional gastrointestinal complaints Musculoskeletal: Musculoskeletal: Reports no additional musculoskeletal complaints Neurologic: Reports system reviewed and no additional complaints, except as documented Psychiatric: Psychiatric: Reports no additional psychiatric complaints PMFSH Past Medical History Medical History (Updated 11/10/24 @ 12:01 by Ash Avila MD) OAB (overactive bladder) History of radiation therapy HX: breast cancer Hyperlipidemia Benign essential HTN Cholecystitis Appendicitis Glaucoma Surgical History Surgical History Hx of lumpectomy Status post glaucoma surgery S/P DONALDO (total abdominal hysterectomy) Hx laparoscopic cholecystectomy History of appendectomy Family History Family History Other Heart disease Hypertension Social History Social History Smoking status: Never smoker Second hand tobacco smoke exposure: No Alcohol intake: never Substance use: never Substance use type: does not use Living arrangements: alone Occupation/Education: unemployed Gender identity (if verbalized by the patient): Female Sexual Orientation (if Verbalized by the Patient): Straight or Heterosexual Exam Narrative: GENERAL: Well-appearing, well-nourished, and in no acute distress. HEAD: Normocephalic, atraumatic. EYES: PERRLA and EOMI. ENT: Nares clear, no rhinorrhea or epistaxis. Mucous membranes moist. NECK: Supple. CHEST: Clear to auscultation. No respiratory distress. HEART: Regular rate and rhythm. No murmur heard. Normal peripheral pulses. ABDOMEN: Soft, nontender, nondistended, normal active bowel sounds. EXTREMITIES: Normal range of motion. No edema. SKIN: Warm, dry, no rash. NEURO: No focal deficits. Alert and oriented x3. PSYCH: Normal mood and affect. Course Course Emergency Course: Notified patient about her lab work., EKG and chest x-ray findings. Her pain is much improved and she is requesting a day off from work. Vital Signs Vital signs: Vital Signs Pulse Rate 79 11/10/24 08:10 Respiratory Rate 18 11/10/24 08:10 Blood Pressure 155/77 H 11/10/24 08:10 Pulse Oximetry 100 11/10/24 08:10 Pulse Rate 76 11/10/24 09:56 Respiratory Rate 18 11/10/24 09:56 Blood Pressure 154/76 H 11/10/24 09:56 Pulse Oximetry 100 11/10/24 09:56 MDM - Chest Pain Differential Diagnosis Differential diagnosis: Likely fracture of rib, unstable angina pectoris, costochondritis and chest pain Medical Records Data Attestation: I reviewed the patient's medical records. Lab Data Attestation: I reviewed the patient's lab results. 11/10/24 08:17 11/10/24 08:17 Labs: Lab Results 11/10/24 11/10/24 11/10/24 Range/Units 08:17 08:17 10:55 WBC 6.5 (4.5-10.0) K/mm3 RBC 4.22 (4.2-5.4) M/mm3 Hgb 12.9 (12.0-15.0) g/dL Hct 40.2 (37.0-47.0) % MCV 95.3 (80-100) fl MCH 30.6 (26-34) pg MCHC 32.1 (32-36) g/dl RDW 13.0 (11.5-14.5) % Plt Count 289 (150-375) k/mm3 MPV 8.8 (7.4-10.4) fl Immature Gran % (Auto) 0.3 (0-0.5) % Neut % (Auto) 48.2 (45.5-73.1) % Lymph % (Auto) 41.8 (18.3-44.2) % [place] % (Auto) 6.6 (2.6-8.5) % Eos % (Auto) 2.6 (0-4.4) % Baso % (Auto) 0.5 (0.2-1.2) % Lymph # (Auto) 2.73 (0.9-3.2) K/mm3 [place] # (Auto) 0.4 (0.1-0.6) K/mm3 Eos # (Auto) 0.2 (0-0.3) K/mm3 Baso # (Auto) 0.0 (0.0-0.1) K/mm3 Abs Immat Gran (auto) 0.02 (0.00-0.031) K/mm3 Absolute Neuts (auto) 3.2 (1.3-6.7) K/mm3 Absolute Nucleated RBC 0.000 (0.0-0.012) K/mm3 Nucleated RBC % 0.0 (0.0-0.2) % PT 12.9 (11.1-14.7) Seconds INR 0.9 Sodium 140 (137-145) mmol/L Potassium 4.2 (3.4-5.0) mmol/L Chloride 105 (98-107) mmol/L Carbon Dioxide 25 (22-30) mmol/L Anion Gap 10 (4-12) mmol/L BUN 16 (7-17) mg/dL Creatinine 0.70 (0.7-1.0) mg/dL Estim Creat Clear Calc 84 ml/min Estimated GFR > 60 (59 - ) Glucose 89 (65-110) mg/dL Calcium 9.2 (8.4-10.2) mg/dL Total Bilirubin 0.8 (0.2-1.3) mg/dL AST 24 (14-36) U/L ALT 18 (6-35) U/L Alkaline Phosphatase 109 (38-126) U/L Troponin I < 0.012 Cancelled < 0.012 (0.000-0.034) ng/mL NT-Pro-B Natriuret Pep 102 H (19.9-100) pg/mL Total Protein 7.0 (6.3-8.2) g/dL Albumin 4.4 (3.5-5.1) g/dL Imaging Data Radiologist's impression: ITS Impressions Chest X-Ray 11/10/24 08:13 IMPRESSION: 1: NO ACUTE CARDIOPULMONARY DISEASE. ECG Data EKG #1: ECG completion date: 11/10/24 ECG completion time: 04:43 EKG Interpretation: normal rate (90), normal QRS, LBBB and no acute changes EKG #2: ECG completion date: 11/10/24 EKG Interpretation: normal rate (74), no ectopy, non-specific ST changes and LBBB Discharge Plan Discharge Clinical Impression: Chest pain Qualifiers: Chest pain type: unspecified Qualified Code(s): R07.9 - Chest pain, unspecified Patient Disposition: Home Condition: Stable Instructions: Chest Pain (ED) Additional Instructions: take pain meds as prescribed,continue home meds ,follow with your doctor Patient Language: Hebrew Prescriptions: New hydrocodone-acetaminophen 5-325 mg tablet 1 tablet PO Q8H PRN (Reason: pain) Qty: 10 0RF No Action latanoprost 0.005 % drops 1 drp EACH EYE DAILY dorzolamide-timolol 22.3-6.8 mg/mL drops 1 drp EACH EYE QHS amlodipine 10 mg tablet 10 mg PO DAILY atorvastatin 20 mg tablet 20 mg PO DAILY losartan 100 mg tablet 100 mg PO DAILY diclofenac sodium [Arthritis Pain (diclofenac)] 1 % gel 2 g topical QID PRN (Reason: Pain) Rx Instructions: apply to single elbow, wrist or hand; for hand includes palm/fingers/back of hand oxybutynin chloride 5 mg tablet 5 mg PO BID Qty: 60 2RF Follow-up/Referrals: Aniya Carmen MD [Primary Care Provider] - Stand Alone Forms: Work/School Release IP Time of Disposition: 12:03
[2024-11-10 12:17] VITALS: BP 150/60; PULSE 78; RESP 15; O2SAT 100
== END 2024-11-10 12:18 | disposition home or self-care (01) ==
PROVIDERS: Emergency Provider Family Medicine; PCP Family Medicine
DX: R07.9 Chest pain, unspecified (principal); I10 Essential (primary) hypertension; E78.5 Hyperlipidemia, unspecified; N32.81 Overactive bladder; H40.9 Unspecified glaucoma; Z92.3 Personal history of irradiation; Z85.3 Personal history of malignant neoplasm of breast; Z90.710 Acquired absence of both cervix and uterus; Z90.49 Acquired absence of other specified parts of digestive tract; I44.7 Left bundle-branch block, unspecified
CPT/HCPCS: 36415; 71045; 80053; 83880; 84484; 85025; 85610; 93005; 99284; A9270

== ENCOUNTER 2025-05-29 22:15 | Emergency (ER) | payer MEDICARE, SELFPAY ==
--- NOTE | ~2025-05-29 | XR_ITS ---
Examination: XR hip RT min 3V w AP pelvis Clinical History: Groin pain Comparison: None Technique: 2 views right hip with AP pelvis Findings/impression: 1. No fracture or dislocation right hip. 2. Mild degenerative changes bilateral hips. 3. No pelvic fracture identified. Reviewed, dictated and finalized at location [facility]. [facility]
--- OUTSIDE RECORDS SUMMARY | 2025-05-29 22:19 | XMS_ITS | Encounter Summary ---
Author Organization [facility] Healthcare Address [address] [place] [address] Care Team Providers Care Performance Improvement Analyst Name Role Phone Karma Ledezma MD Primary Care Provide r No, Physician Primary Care Provider [phone] Encounter Details Date Type Department Care Team (Late st Contact Info) Description 04/14/2023 Telephone [facility] [address] [facility] [address] [place] [address] Karma Ledezma MD [address] [facility] [address] [place] [address] Social History Tobacco Use Types [...] No 04/13/2019 Social Connection and Isolation Panel Answer Date Recorded Frequency of Communication with Friends and Fami ly Not on file 04/13/2019 Frequency of Social Gatherings with Friends and Family Not on file 04/13/2019 Attends [employer] Services Not on file 04/13 Active Member [...] on file 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
--- OUTSIDE RECORDS SUMMARY | 2025-05-29 22:19 | XMS_ITS | Data Portability ---
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 Plan of Treatment Reminders Order Date Submit Date Provider Last Modified By Organization Details Last Modified Time Details Appointments None recor ded. Lab urina lysis , dipst ick 2016 017 LUPE In-Office Order, Internal Use Only DO Not Attach Compendium DO Not Attach Compendium, Do Not Delete/merge, [id number] 7 11:36:20 cultu re, urine 2016 017 [facility], [address] [place] [address], [facility] [address], [place], [address], 7 06:14:21 CMP, serum or plasm a 2016 017 LUPE VELARDE, [address] [place] [address], [facility] [address], [place], [address], 7 06:14:47 lipid panel , serum 2016 017 [facility], [address] [place] [address], [facility] [address], [place], [address], 7 06:14:48 urina lysis , dipst ick 2016 017 karoline In-Office Order, Internal Use Only DO Not Attach Compendium DO Not Attach Compendium, Do Not Delete/merge, [id number] 7 17:12:[address] refer ral 2016 017 LU[facility], [address] [facility], [address], [place], [address], 7 09:35:29 Procedures None recor ded. Surgeries None recor ded. Imaging XR, hand, 3 or more view 2024 025 [facility] ([facility]), [address], [place], [address], 5 13:50:20 XR, knee 2016 017 [facility] ([facility]), [address] [facility], [place], [address], 7 18:01:09 Medication Orders Medro l (Jamal) 4 mg table ts in a dose pack [address] [facility][id number], [address], [place], [address], 5 18:31:26 [place] cony Arthr itis Pain 1 % topic al gel [address] [facility] #[id number], [address], [place], [address], 5 18:31:27 nitro furan toin monoh ydrat e/mac rocry stals 100 mg capsu le 2016 017 [id number], [address] [facility] [place], [address], 7 11:15:16 omepr azole 20 mg capsu le,de layed relea se 2016 017 [id number], [address] [place], [address], 17:12:50 Patient TargetsNo targets recorded. Patient Instructions Encounter Date Encounter Id Patient Instructions Last Modified By Organization Details Last Modified Time 11/19/2016 [id number] gastroesophageal reflux disease (GERD): care instructions eewig Not available 11/19/2016 17:12:50 Will sign RADHA fr om Dr. Annalisa Hernandez - last 2 office notes, any imaging, mammograms, colonoscopy (was in 2014) note, recent labs, vaccine record Patient states that she has had lymph nodes removed from her left breast and has had biopsy - patient states that she follows with a Dr. Adam for oncology yearly eewig Not available 11/19/2016 16:12:33 03/25/2017 [id number] pulmonary functi on test* eewig Not available 04/22/2017 14:25:26 Schedule WWE eewig Not available 11:28:18 04/27/2017 [id number] Schedule an appointment to discuss PFTs and possibly initiate inhalers eewig Not available 04/27/2017 11:54:14 04/14/2025 [id number] hand pain: care instructions dkrone Not available 04/14/2025 18:32:20 A healthy lifest yle: care instructions dkrone Not available 04/14/2025 17:36:37 Take pain medici kendell exactly as directed. If the doctor gave you a prescription medicine for pain, take it as prescribed. If you are not taking a prescription pain medicine, ask your doctor if you can take an jjhm-vpp-eijembx medicine. Rest and protect your hand. Take a break from any activity that may cause pain. Put ice or a cold pack on your hand for 10 to 20 minutes at a time. Put a thin cloth between the ice and your skin. Prop up the sore hand on a pillow when you ice it or anytime you sit or lie down during the next 3 days. Try to keep it above the level of your heart. This will help reduce swelling. If your doctor recommends a sling, splint, or elastic bandage to support your hand, wear it as directed. When should you call for help? Call anytime you think you may need emergency care. For example, call if: Your hand turns cool or pale or changes color. 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 for Referral Commercial Credit Analyst Referral for Dy spnea on exertion Referring Physician: Genesis Das, Family Medicine, Encounter Date: 11/19/2016 Results Created Date Observation Date Name Description Value Unit Range Abnormal Flag Note LastModifiedBy Organization Detail LastModifiedTime 03/25/2003/25/2017 urina lysis , dipst ick Leukocytes Negati ve Not Available In-Office Order Internal Use Only DO Not Attach Compendium DO Not Attach Compendium, Do Not Delete/merge, [id number] 03/25/2017 11:20:27 03/25/2003/25/2017 urina lysis , dipst ick Nitrite negati ve Not Available In-Office Order Internal Use Only DO Not Attach Compendium DO Not Attach Compendium, Do Not Delete/merge, [id number] 03/25/2017 11:20:27 03/25/2003/25/2017 urina lysis , dipst ick Urobilinogen .2 Not Available In-Of fice Order Internal Use Only DO Not Attach Compendium DO Not Attach Compendium, Do Not Delete/merge, [id number] 03/25/2017 11:20:27 03/25/2003/25/2017 urina lysis , dipst ick Protein Negati ve Not Available In-Office Order Internal Use Only DO Not Attach Compendium DO Not Attach Compendium, Do Not Delete/merge, [id number] 03/25/2017 11:20:27 03/25/2003/25/2017 urina lysis , dipst ick pH 5.0 Not Available In-Office Order Internal Use Only DO Not Attach Compendium DO Not Attach Compendium, Do Not Delete/merge, 03/25/2017 11:20:27 03/25/2003/25/2017 urina lysis , dipst ick Blood Hemoly zed: Trace Not Available In-Office Order Internal Use Only DO Not Attach Compendium DO Not Attach Compendium, Do Not Delete/merge, [id number] 03/25/2017 11:20:27 03/25/2003/25/2017 urina lysis , dipst ick Specific Schuyler 1.030 Not Available In-Off ice Order Internal Use Only DO Not Attach Compendium DO Not Attach Compendium, Do Not Delete/merge, [id number] 03/25/2017 11:20:27 03/25/2003/25/2017 urina lysis , dipst ick Ketone Negati ve Not Available In-Office Order Internal Use Only DO Not Attach Compendium DO Not Attach Compendium, Do Not Delete/merge, [facility] 03/25/2017 11:20:27 03/25/2003/25/2017 urina lysis , dipst ick Bilirubin Negati ve Not Available In-Office Order Internal Use Only DO Not Attach Compendium DO Not Attach Compendium, Do Not Delete/merge, [facility] 03/25/2017 11:20:27 03/25/2003/25/2017 urina lysis , dipst ick Glucose Negati ve Not Available In-Office Order Internal Use Only DO Not Attach Compendium DO Not Attach Compendium, Do Not Delete/merge, [facility] 03/25/2017 11:20:27 03/25/2003/25/2017 urina lysis , dipst ick Appearance Clear Not Available In-Offi ce Order Internal Use Only DO Not Attach Compendium DO Not Attach Compendium, Do Not Delete/merge, [id number] 03/25/2017 11:20:27 03/25/2003/25/2017 urina lysis , dipst ick Color Yellow Not Available In-Office Order Internal Use Only DO Not Attach Compendium DO Not Attach Compendium, Do Not Delete/merge, [facility] 03/25/2017 11:20:27 11/20/1911/19/2016 urina lysis , dipst ick Leukocytes Small Not Available In-Offi ce Order Internal Use Only DO Not Attach Compendium DO Not Attach Compendium, Do Not Delete/merge, [id number] 11/19/2016 16:06:02 11/20/19 17 11/19/2016 urina lysis , dipst ick Nitrite negati ve Not Available In-Office Order Internal Use Only DO Not Attach Compendium DO Not Attach Compendium, Do Not Delete/merge, [facility] 11/19/2016 16:06:02 11/20/1911/19/2016 urina lysis , dipst ick Urobilinogen .2 Not Available In-Of fice Order Internal Use Only DO Not Attach Compendium DO Not Attach Compendium, Do Not Delete/merge, [facility] 11/19/2016 16:06:02 11/20/19 17 11/19/2016 urina lysis , dipst ick Protein 2000+ Not Available In-Office Order Internal Use Only DO Not Attach Compendium DO Not Attach Compendium, Do Not Delete/merge, [facility] 11/19/2016 16:06:02 11/20/19 17 11/19/2016 urina lysis , dipst ick pH 7.0 Not Available In-Office Order Internal Use Only DO Not Attach Compendium DO Not Attach Compendium, Do Not Delete/merge, [facility] 11/19/2016 16:06:02 11/20/19 17 11/19/2016 urina lysis , dipst ick Blood Negati ve Not Available In-Office Order Internal Use Only DO Not Attach Compendium DO Not Attach Compendium, Do Not Delete/merge, [facility] 11/19/2016 16:06:02 11/20/19 17 11/19/2016 urina lysis , dipst ick Specific Schuyler 1.010 Not Available In-Off ice Order Internal Use Only DO Not Attach Compendium DO Not Attach Compendium, Do Not Delete/merge, [facility] 11/19/2016 16:06:02 11/20/19 17 11/19/2016 urina lysis , dipst ick Ketone Large (160) Not Available In-Office Order Internal Use Only DO Not Attach Compendium DO Not Attach Compendium, Do Not Delete/merge, [facility] 11/19/2016 16:06:02 11/20/19 17 11/19/2016 urina lysis , dipst ick Bilirubin Negati ve Not Available In-Office Order Internal Use Only DO Not Attach Compendium DO Not Attach Compendium, Do Not Delete/merge, [id number] 11/19/2016 16:06:02 11/20/19 17 11/19/2016 urina lysis , dipst ick Glucose Negati ve Not Available In-Office Order Internal Use Only DO Not Attach Compendium DO Not Attach Compendium, Do Not Delete/merge, [facility] 11/19/2016 16:06:02 11/20/19 17 11/19/2016 urina lysis , dipst ick Appearance Slight ly Cloudy Not Available In-Office Order Internal Use Only DO Not Attach Compendium DO Not Attach Compendium, Do Not Delete/merge, [id number] 11/19/2016 16:06:02 11/20/19 17 11/19/2016 urina lysis , dipst ick Color Pale Yellow Not Available In-Office Order Internal Use Only DO Not Attach Compendium DO Not Attach Compendium, Do Not Delete/merge, [id number] 11/19/2016 16:06:02 11/27/19 17 11/27/2016 CMP, serum or plasm a glucose, serum 94 mg/dL 65-99 Not Available [facility] ([facility]) [address] [place], [address], 11/27/2016 06:14:47 11/27/19 17 11/27/2016 CMP, serum or plasm a BUN 12 mg/dL 6-24 Not Available [facility] ([facility]) [address] [place], [address], 11/27/2016 06:14:47 11/27/19 17 11/27/2016 CMP, serum or plasm a creatinine, serum 0.73 mg/dL 0.57-1 .00 Not Available [facility] ([facility]) [address] [place], [address], 11/27/2016 06:14:47 11/27/19 17 11/27/2016 CMP, serum or plasm a eGFR if nonafricn AM 91 mL/mi n/1.7 3 >59 Not Available [facility] ([facility]) [address] [place], [address], 11/27/2016 06:14:47 11/27/19 17 11/27/2016 CMP, serum or plasm a eGFR if africn AM 105 mL/mi n/1.7 3 >59 Not Available [facility] ([facility]) [address] [place], [address], 11/27/2016 06:14:47 11/27/19 17 11/27/2016 CMP, serum or plasm a BUN/creatini ne ratio 16 9-23 Not Available [facility] ([facility]) [address] [facility] [place], [address], 11/27/2016 06:14:47 11/27/19 17 11/27/2016 CMP, serum or plasm a sodium, serum 142 mmol/ L 134-14 4 Not Available [facility] ([facility]) [address] [place], [address], 11/27/2016 06:14:47 11/27/1911/27/2016 CMP, serum or plasm a potassium, serum 4.6 mmol/ L 3.5-5. 2 Not Available [facility] ([facility]) [address] [place], [address], 11/27/2016 06:14:47 11/27/19 17 11/27/2016 CMP, serum or plasm a chloride, serum 104 mmol/ L 96-106 Not Available [facility] ([facility]) [address] [place], [address], 11/27/2016 06:14:47 11/27/19 17 11/27/2016 CMP, serum or plasm a carbon dioxide, total 22 mmol/ L 18-29 Not Available [facility] ([facility]) [address] [place], [address], 11/27/2016 06:14:47 11/27/19 17 11/27/2016 CMP, serum or plasm a calcium, serum 9.9 mg/dL 8.7-10 .2 Not Available [facility] ([facility]) [address] [place], [address], 11/27/2016 06:14:47 11/27/19 17 11/27/2016 CMP, serum or plasm a protein, total, serum 6.9 g/dL 6.0-8. 5 Not Available [facility] ([facility]) [address] [place], [address], 11/27/2016 06:14:47 11/27/1911/27/2016 CMP, serum or plasm a albumin, serum 4.4 g/dL 3.5-5. 5 Not Available [facility] ([facility]) [address] [facility] [place], [address], 11/27/2016 06:14:47 11/27/1911/27/2016 CMP, serum or plasm a globulin, total 2.5 g/dL 1.5-4. 5 Not Available [facility] ([facility]) [address] [facility] [place], [address], 11/27/2016 06:14:47 11/27/1911/27/2016 CMP, serum or plasm a A/G ratio 1.8 1.2-2. 2 Not Available [facility] ([facility]) [address] [facility] [place], [address], 11/27/2016 06:14:47 11/27/1911/27/2016 CMP, serum or plasm a bilirubin, total 0.5 mg/dL 0.0-1. 2 Not Available [facility] ([facility]) [address] [facility] [place], [address], 11/27/2016 06:14:47 11/27/1911/27/2016 CMP, serum or plasm a alkaline phosphatase, S 106 IU/L 39-117 Not Available [facility] ([facility]) [address] [facility] [place], [address], 11/27/2016 06:14:47 11/27/1911/27/2016 CMP, serum or plasm a AST (SGOT) 18 IU/L 0-40 Not Available [facility] ([facility]) [address] [facility] [place], [address], 11/27/2016 06:14:47 11/27/19 11/27/2016 CMP, serum or plasm a ALT (SGPT) 15 IU/L 0-32 Not Available [facility] ([facility]) [address] [place], [address], 11/27/2016 06:14:47 11/27/19 17 11/27/2016 lipid panel , serum cholesterol, total 209 mg/dL 100-19 9 above high normal Not Available [facility] ([facility]) [address] [place], [address], 11/27/2016 06:14:48 11/27/19 17 11/27/2016 lipid panel , serum triglyceride s 73 mg/dL 0-149 Not Available [facility] ([facility]) [address] [facility] [place], [address], 11/27/2016 06:14:48 11/27/19 17 11/27/2016 lipid panel , serum HDL cholesterol 72 mg/dL >39 Not Available [facility] ([facility]) [address] [facility] [place], [address], 11/27/2016 06:14:48 11/27/1911/27/2016 lipid panel , serum VLDL cholesterol rayshawn 15 mg/dL 5-40 Not Available [facility] ([facility]) [address] [facility] [place], [address], 11/27/2016 06:14:48 11/27/19 17 11/27/2016 lipid panel , serum LDL cholesterol calc 122 mg/dL 0-99 above high normal Not Available [facility] ([facility]) [address] [facility] [place], [address], 11/27/2016 06:14:48 11/27/19 17 11/27/2016 lipid panel , serum comment: 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 chol/HDL ratio 2.9 ratio _unit s 0.0-4. 4 T. CHOL/ HDL RATIO MEN WOMEN 1/2 AVG.R ISK 3.4 3.3 AVG.R ISK 5.0 4.4 2X AVG.R ISK 9.6 7.1 3X AVG.R ISK 23.4 11.0 Not Available [facility] ([facility]) [address] [facility], [place], [address], 11/27/2016 06:14:48 03/25/20 17 03/27/2017 cultu re, urine urine culture, routine FINAL REPORT Not Available [facility] ([facility]) [address] [facility], [place], [address], 03/27/2017 06:14:21 03/25/20 17 03/27/2017 cultu re, urine result 1 NO GROWTH Not Available [facility] ([facility]) [address] [place], [address], 03/27/2017 06:14:21 01/08/20 17 01/01/2017 trans -thor acic echoc ardio gram (TTE) (PROC ) No observ ation record ed. [facility] [address] [facility], [place], [address], 01/11/2017 17:56:19 01/08/20 17 01/01/2017 US, doppl er echoc ardio gram No observ ation record ed. [email or web address] Not Available 12/24 10:25:31 02/03/20 17 12/31/2016 eder r monit or No observ [facility]ion record ed. [facility] [address] [facility] [address], [place], [address], 02/03/2017 11:17:43 04/17/20 17 04/16/2017 pulmo nary funct ion test* No observ ation record ed. [facility] [address], [place], [address], 04/27/2017 11:41:50 05/09/20 25 04/14/2025 XR, hand, 3 or more view No observ ation record ed. [facility] ([facility]) [address], [place], [address], 05/09/2025 13:50:20 Result Notes None recorded. Problems Name Problem SNOMED Code Status Onset Date Resolution Date Notes Provider Name and Address Organization Details Recorded Time Essential hypertension 20708584 Active 2016 Genesis Das PA-C Attn: Accounting ,[address] [place], [address] , [facility] 7 15:57:05 Glaucoma 49660663 Active 2016 Genesis Das PA-C Attn: Accounting ,[address] [place], [address] , [facility] 7 15:57:26 Dyspnea on exertion 99691037 Active 2016 Genesis Das PA-C Attn: Accounting ,[address] [place], [address] , [facility] 7 16:10:10 Obesity 351734533 Active 2016 Genesis Das PA-C Attn: Accounting ,[address] [place], [address] , [place] [facility] 7 16:10:13 Increased frequency of urination 194163563 Active 2016 Genesis Das PA-C Attn: Accounting ,[address] [place], [address] , [place] [facility] 7 16:10:15 Gastroesophag eal reflux disease 874499729 Active 2016 Genesis Das PA-C Attn: Accounting ,[address] [place], [address] , [place] [facility] 7 16:10:17 Adult health examination Active 2016 Genesis Das PA-C Attn: Accounting ,[address] [place], [address] , [facility] 7 17:07:35 Urinary tract infectious disease 35071518 Active 2016 Genesis Das PA-C Attn: Accounting ,[address] [place], [address] , [facility] 7 17:07:42 Knee pain Active 2016 Genesis Das PA-C Attn: Accounting ,[address] [place], [address] , [facility] 7 17:07:51 Allergic rhinitis 29894558 Active 2016 Genesis Das PA-C Attn: Accounting ,[address] [place], [address] , [facility] 7 11:27:45 Problem Notes None recorded. Procedures Surgical History Date Name Laterality Status Provider Name and Address Organization Details Recorded Time 12/25/19 15 Total hysterectomy completed Genesis Das PA-C Attn: Accounting, [place], [address], [facility] 04/27/2017 11:31:17 Appendectomy completed Laura García MA [facility] 11/19/2016 15:49:03 Eye Surgery completed Laura García MA [facility] 11/19/2016 15:49:12 Imaging Results None recorded. Procedure Notes None recorded. Medical Equipment None Reported. Allergies No known drug allergies Medications Name Sig Start Date Stop Date Status Note LastModified by Organization Details LastModified Time latanoprost 0.005 % eye drops INSTILL 1 DROP INTO BOTH EYES AT BEDTIME active Not Available Not Available No t Available neomycin-po lymyxin-hyd rocort 3.5 mg/mL-10,00 0 unit/mL-1 % ear solution 11/19 completed Not Available Not Available Not Available hydrocodone 5 mg-acetamin ophen 325 mg tablet TAKE 1 TABLET BY MOUTH EVERY 8 HOURS NEEDED FOR PAIN active Not Available Not Available No t Available amlodipine 5 mg tablet active Not Available Not Available Not Available amlodipine 10 mg tablet TAKE 1 TABLET BY MOUTH EVERY DAY active Not Available Not Available No t Available brimonidine 0.2 % eye drops INSTILL 1 DROP INTO BOTH EYES TWICE A DAY active Not Available Not Available No t Available gabapentin 300 mg capsule 11/19 completed Not Available Not Available Not Available omeprazole 20 mg capsule,del ayed release Take 1 capsule every day by oral route. 2016 active Not Available Not Available Not Avai lable dorzolamide 22.3 mg-timolol 6.8 mg/mL eye drops INSTILL ONE DROP INTO BOTH EYES TWICE A DAY. active Not Available Not Available No t Available furosemide 20 mg tablet 11/19 completed Not Available Not Available Not Available methylpredn isolone 4 mg tablets in a dose pack TAKE 6 TABLETS ON DAY 1 DIRECTED ON PACKAGE AND DECREASE BY 1 TAB EACH DAY FOR A TOTAL OF 6 DAYS active Not Available Not Available No t Available timolol maleate 0.5 % eye drops INSTILL 1 DROP INTO BOTH EYES TWICE A DAY active Not Available Not Available No t Available losartan 100 mg tablet TAKE 1 TABLET BY MOUTH EVERY DAY active Not Available Not Available No t Available naproxen 500 mg tablet 11/19 completed Not Available Not Available Not Available dorzolamide 2 % eye drops INSTILL 1 DROP INTO BOTH EYES TWICE A DAY active Not Available Not Available No t Available nitrofurant oin monohydrate /macrocryst als 100 mg capsule Take 1 capsule twice a day by oral route for 5 days. 03/25 completed Not Available Not Available Not Available Voltaren Arthritis Pain 1 % topical gel APPLY 2 GRAMS TO THE AFFECTED AREA(S) BY TOPICAL ROUTE 4 TIMES PER DAY 2024 active Not Available Not Available Not Avai lable Vitals Date Recorded Body height Body weight Body mass index (BMI) Oxygen saturation Oxygen saturation in Arterial blood by Pulse oximetry Heart rate Respiratory rate Body temperature Systolic And Diastolic Provider Name and Address Organization Details Last Updated DateTime 7 175.26 cm 653325. 51 g 32.6 kg/m2 100 % 100 % 78 /min 22 /min 98.2 [degF] 136/72 mm[Hg] Laura García MA [facility] 7 15:45:44 Date Recorded Body height Body mass index (BMI) Body weight Oxygen saturation Oxygen saturation in Arterial blood by Pulse oximetry Heart rate Respiratory rate Body temperature Systolic And Diastolic Provider Name and Address Organization Details Last Updated DateTime 7 175.26 cm 32.3 kg/m2 41401.9 4 g 98 % 98 % 84 /min 16 /min 98.3 [degF] 140/80 mm[Hg] Michael Hou [facility] 7 10:52:31 Date Recorded Body height Body mass index (BMI) Body weight Oxygen saturation Oxygen saturation in Arterial blood by Pulse oximetry Heart rate Body temperature Systolic And Diastolic Provider Name and Address Organization Details Last Updated DateTime 5 175.26 cm 32.2 kg/m2 97555.5 4 g 98 % 98 % 73 /min 98.2 [degF] 150/80 mm[Hg] Bertha Hanley MA [facility] 5 17:28:36 Date Recorded Body height Body mass index (BMI) Body weight Heart rate Respiratory rate Body temperature Systolic And Diastolic Provider Name and Address Organization Details Last Updated DateTime 7 175.26 cm 32.5 kg/m2 49562.3 2 g 76 /min 12 /min 98.2 [degF] 110/64 mm[Hg] Michael Hou [facility] 7 11:22:36 Social History Question Answer Notes LastModified by Organizat ion Details LastModified Time Tobacco Smoking Status Never Smoker Laura García MA [facility] 11/19/2016 15:46:59 Do You Have An Advance Directive? No Information not available 11/19/2016 Are You Blind Or Do You Have Difficulty Seeing? No Information not available 11/19/2016 What Is Your Level Of Caffeine Consumption? Heavy Information not available 11/19/2016 How Much Tobacco Do You Chew? None Information not available 11/19/2016 What Type Of Diet Are You Following? REGULAR Information not available 11/19/2016 Which Illicit Or Recreational Drugs Have You Used? None Information not available 11/19/2016 Education 12 Information no t available 11/19/2016 Are There Any Guns Present [...] Date Of Your Most Recent Tobacco Screening? 04/14/2025 Information not available 04/14/2025 How Many Children Do You Have? 0 [...] Sunscreen Routinely? No Information not available 11/19/2016 Has Tobacco Cessation Counseling Been Provided? No Information not available 04/14/2025 Do You Have Difficulty Walking Or Climbing Stairs? No Information not available 11/19/2016 Sex: Unknown Functional Status Question Answer Note LastModified by Organizat ion Details LastModified Time Do you use any illicit or recreational drugs? No Information not available 04/14/2025 Do you or have you ever used any other forms of tobacco or nicotine? No Information not available 04/14/2025 What is your level of alcohol consumption? None Information not available 11/19/2016 Are you currently employed? Yes Information not available 11/19/2016 Do you have difficulty doing errands alone? No Information not available 11/19/2016 Are you able to care for yourself independently? 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 No Information not available 11/19/2016 What is your exercise level? Moderate Information not available 11/19/2016 Mental Status Question Answer Note LastModified by Organization D etails LastModified Time Do you have difficulty concentrating, remembering or making decisions? No Information no t available 11/19/2016 Family History Relationship Description Onset Age of this Age Resolved Age Notes LastModified by Organization Details LastModified Time Paternal Aunt Malignant neoplasm of breast Not available 2016 15:46:50 Father [...] e and Address Organization Details Recorded Time Influenza, split virus, quadrivalent, PF 8 completed Not Available [facility] 04/14/2025 17:20:17 Influenza, split virus, quadrivalent, PF 0 completed Not Available [facility] 04/14/2025 17:20:17 Influenza, MDCK, trivalent, PF 4 completed Not Available [facility] 04/14/2025 17:20:17 Td(adult) unspecified formulation 3 completed Laura García MA [facility] [place] [facility] [place] 11/19/2016 15:45:30 Past Encounters Encounter ID Performer Location Encounter Start Date Encounter Closed Date Diagnosis/Indication Diagnosis SNOMED-CT Code Diagnosis ICD10 Code Diagnosis IMO Codes Diagnosis Note [id number] MD Kesha Knott (Adult Med) [address] [place] [address] 11/19/2016 15:16:41 11/19/2016 18:01:09 Obesity 538821191 E66.9 Advised 30 minutes of exercise 5 days/week Advised to not drink her calories Advised 3 balanced meals/day with plenty of fruits and vegtables Adult heal th examination 476204234 Z00.01 56YA AA female here to establish [...] much beyond that Increased frequency of urination 033858425 R35.0 Gastroesop hageal reflux disease 636873189 K21.0 Knee pain 19764702 M25.5 59 right knee - will begin with xray Urinary tr act infectious disease 62631071 N39.0 Glaucoma 14492755 H40.[address] Rodriguez at [facility] Essential hypertension 42718990 I10 136/72 - WNL - c/w amlodipine 5mg [id number] MD Kesha Knott (Adult Med) [address] [place] [address] 03/25/2017 10:26:33 03/25/2017 11:42:05 Allergic rhinitis 94570708 J30.9 Cannot do antihistam yair d/t glaucomaAd vised nasal saline rinses Dyspnea on exertion 6084 5006 R06.09 Patient states that she had a test done once a few months ago but did not know much beyond thatPer patient, had cardiology w/u and was negativeWi ll check PFTs Increased frequency of urination 775641157 R35.0 UA negative - send for cultureAdv ised to increase water intakeStay away from sugary drinks Obesity 126391846 E66.9 Advised 30 minutes of exercise 5 days/week Advised to not drink her calories Advised 3 balanced meals/day with plenty of fruits and vegetables Glaucoma 08978779 H40.[address] Rodriguez at [facility] Essential hypertension 38784294 I10 140/80 - basically WNL, NAD - c/w amlodipine 5mg [id number] MD Kesha Knott (Adult Med) [address] [place] [address] 04/27/2017 11:05:08 04/27/2017 13:20:39 Gynecologic examination 77663561 Z01.419 no sample taken for pap smear Screening for malignant neoplasm of breast 172952774 Z12.31 Per patient, she just got a reminder letter to schedule an appointmen t for her mammogram at [place]. States that she will do so and then have the results sent hereAdvise d patient that if she for some reason cannot obtain a mammogram through them, I can order her one has well. Uterine cervix absent 24 3690401 Z90.099 [id number] ERICK MAY MD [address] [address] 04/14/2025 17:19:33 04/17/2025 10:12:40 Obese class I 6511393940 78834 E66.811 E66.3 [id number] Non-smoker 0076338 Z78.9 7653993 Pain of left hand 211486 1878 15347 M79.642 774198 Health Concerns Section Related Observation LastModified by Organization Detai ls LastModified Time None Recorded Concern Status LastModified by Organization Details LastModified Time None Recorded Advance Directives Directive N: Payers Insurance Date Sequence Insurance Name Policy Number Policy Onofre Covered Member ID Onofre Member ID Guarantor Name 04/14/2025 1 [place] Ankita Soni [id number] Ankita Soni 04/17/2025 2 [facility] (MEDICARE REPLACEMENT/A DVANTAGE - HMO) [id number] Ankita Soni [id number] Ankita Soni 04/17/2025 [place] [facility] Ankita Soni [id number] Ankita Soni 04/14/2025 1 [facility] [id number] Ankita Soni [id number] Ankita Soni Notes Date Note Type Note Provider Name and Address Organization Details Recorded Time 7 text/html KneeReported by PatientHPIFor associated symptoms, patient reportsswelling,catching/l ocking, andpopping/clickingbut reportsno weakness,no numbness,no tingling,no redness,no warmth,no ecchymosis,no buckling,no grinding,no instability,no radiation down leg,no drainage,no fever,no chills,no weight loss, andno change in bowel/bladder habits. For location, patient reportsright. For quality, patient reportsachingandthrobbing. For severity, patient reportsmoderate. For duration, patient reports___ months. For timing, patient reportschronic. For context, patient reportsoveruse. For alleviating factors, patient reportsrest. For aggravating factors, patient reportsstanding,bending/sq uatting, androm. For previous surgery, patient reportsnone. For previous injections, patient reportshelped significantly. For previous pt, patient reportsnone. For work related, patient reportsyes (from overuse). For working, patient reportsregular duty. DyspneaReported by PatientHPIFor quality, patient reportsdyspnea (on exertion). For context, patient reportswith activity. For aggravating factors, patient reportsactivity. For associated symptoms, patient reportspalpitationsbut reportsno chest pain,no orthopnea,no pnd,no fever,no chills,no wheezing,no dietary indiscretion,no sputum production,no hemoptysis,no weight gain,no dyspepsia, andno decrease in exercise capacity. For severity, patient reportsmild. For duration, patient reportsfor 3 months. For onset/timing, patient reportsdaily (whenever she is moving). For alleviating factors, patient reportsrelieved with rest.States that she had a heart test done once and it was normal States that she has guardianship of a 14YO and 16YO Here to establish care. States that she was followed by Dr. Aviles; however, she states that the drive to [facility] is just too long and that is why she is switching. States that she sees an oncologist at [facility] (does not know the name) d/t hx/o breast cancer(?), see an opthalmologist d/t glaucoma. Genesis Das PA-C Attn: Accounting,[address] [facility], [place], [address], [facility] 11/19/2016 17:13:32 7 text/html Urinary FrequencyReported by PatientHPIFor quality, patient reportssymptoms worse during the day. For duration, patient reportsevery 15 minutes. For onset/timing, patient reportsactual date: (1 month). For context, patient reportssuccess with short term antibiotics. For alleviating factors, patient reportsantibiotics. For aggravating factors, patient reportscaffeine. For associated symptoms, patient reportsno abdominal pain,no back pain,no chills,no constipation,no diarrhea,no dribbling,no pain with urination,normal emptying of bladder,no blood in the urine,no hesitancy,normal libido,no nausea,no vomiting,no nocturia,no urine odor,no straining,no incontinence,no fever,no feelings of urgency, andno urge incontinence.not drinking much waterdrinking coffee and sweet teaROS as noted in the HPI 57YO female here for sinus congestion. Complains [...] x 1 month. Genesis Das PA-C Attn: Accounting,[address] [place], [address], [place] - [facility] 03/25/2017 13:31:23 7 text/html Annual GYNReported by PatientGenitourinary symptomsFor urinary symptoms, patient reportsno hematuriaandno incontinence. For vulva, patient reportsno genital lesion. For vagina, patient reportsnormal vaginal discharge. For menstrual cycle, (s/p hysterectomy in 2014).Breast symptomsFor breast, patient reportsbreast pain (fluctuating breast pain throughout the month)but reportsno breast lumpandno nipple discharge.ContraceptionFor current contraception, patient reportsnot sexually active.Endocrine symptomsFor menopausal symptoms, patient reportshot flashesbut reportsnormal vaginal lubrication.Psychological symptomsFor psychological symptoms, patient reportsanxiety (states that she has a lot of that in her life with 'people')but reportsno depression.Preventative measuresFor preventive measures, patient reportsencourage self breast examination,encourage regular exercise,encourage no tobacco use, andencourage regular mammograms starting age 40. 57Yo AA female here for WWE. Per [...] is followed by a breast surgeon [place] and that she always sees the surgeon in April and has a mammogram directly following the appointment Genesis aDs PA-C Attn: Accounting, [address] [place], [address], [facility] 04/27/2017 11:54:43 5 text/html ROS as noted in the HPI 65 year old female presents to IC with complaints of left hand/finger pain. She states it hurts with bending. She states the pain has been ongoing for awhile. She states she was seen by her pcp and given a medication. She doesn't recall the name of the medication. She denies any injury or trauma to her hand. She denies any chest pain, shortness of breath, fever, numbness/tingling. She does admit to some decreased ROM in that left finger and hand. ANDRESSA LOPEZ NP Attn: Accounting,[address] [place], [address], [facility] 04/14/2025 18:37:20 OBGyn Episode No OBEpisode recorded.
--- OUTSIDE RECORDS SUMMARY | 2025-05-29 22:19 | XMS_ITS | Encounter Summary ---
Author Organization [facility] Address [address] [place] [address] Phone Care Team Providers Care Contact Lens Assistant Name Role Phone Carlos Eduardo Abdi MD Primary Care Provider [phone] Asim Avendano MD Primary Care Provider Aniya Carmen MD Primary Care Provider Gabriela Frye MD Primary Care Provider Karma Ledezma MD Primary Care Provide r No, Physician Primary Care Provider [phone] Encounter Details Date Type Department Care Team (Late st Contact Info) Description 07/28/2019 Telephone [facility] Medicine Obstetrics and Gynecology 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 [facility] Hypertension Care Plan Chronic Care Management No [...] on filedocumented in this encounter Care Teams Contact Lens Assistant Relationship Specialty Start Date End Date Carlos Eduardo Abdi MD 1 [facility] [address] [place] [address] PCP - General Internal Medicine 03/15/19 01/10/21 Asim Avendano MD 1 [facility] [address] [place] [address] PCP - General 12/08/21 12/09/21 Aniya Carmen MD [address] [facility] [address] [place] [address] PCP - General 09/01/21 12/07/21 Gabreila Frye MD [address] [facility] [address] [place] [address] PCP - General Internal Medicine 12/10/21 01/08/23 Karma Ledezma MD [address] [facility] [address] [place] [address] PCP - General 01/09/23 04/23/25 No, Physician PCP - General 04/24/25 documented as of this encounter
--- OUTSIDE RECORDS SUMMARY | 2025-05-29 22:19 | XMS_ITS | Clinical Summary ---
Author Organization [facility] Address [facility] [place] [address] Care Team Providers Care Mental Retardation Nurse Name Role Phone Ernesto Fitzpatrick MD Unavailable Unavailable Claudine Ramsey MD Primary Care Provider [phone] Allergies No known active allergies Medications dorzolamide [...] 12:44 PM CDT Height 175.3 cm (5' 9) 01/14/2017 12:44 PM CDT Body Mass Index 32.34 01/14/2017 12:44 PM CDT Plan of Treatment Health Maintenance Due Date Last Done Comments Colorectal Cancer Screening Colonoscopy (10 Years) 1958 Hepatitis C 1976 Mammogram Screening 1998 Pneumococcal Vaccine: 50+ Years (1 of 1 - PCV) 2008 Zoster Vaccines (1 of 2) 2008 DTaP, Tdap and Td Vaccines (2 - Td or Tdap) 03/20/2019 03/20/2009 Dexa Scan (General) 2023 COVID-19 Vaccine (1 - 2024- season) 2025 Influenza Adult (#1) 2025 05/08/2016, 04/25/2014, 04/25/2012, Additional history exists RSV Immunization or 60+ Years (1 - 1-dose 75+ series) 2033 Hepatitis A Vaccines Aged Out No long er eligible based on patient's age to complete this topic Meningococcal B Vaccine Aged Out No l onger eligible based on patient's age to complete this topic Meningococcal Vaccine Aged Out No chloe celestino eligible based on patient's age to complete this topic RSV Immunizations Under 20 Months Aged Out No longer eligible based on patient's age to complete this topic Insurance Care Teams Mental Retardation Nurse Relationship Specialty Start Date End Date Claudine Ramsey MD PCP - General 03/09/17 Ernesto Fitzpatrick MD [place] Channel Director CARDIOVASCULAR DISEASE 11/24/16
--- OUTSIDE RECORDS SUMMARY | 2025-05-29 22:19 | XMS_ITS | Clinical Summary ---
Author Organization [facility] Medical [facility] 2 Address [address] [place] [address] Care Team Providers Care Counseling Director Name Role Phone No, Physician Primary Care Provider [phone] Allergies Active Allergy Reactions Criticality Noted Date [...] lying down or sitting back up. - [place] off balance at time but no falls - Denies fevers, flu/cold symptoms, hearing changes - Symptoms reproduced by [place]-Hallpike. [place] better when Radha maneuver performed in clinic. Ddx: BPPV given positional nature, possible Meniere vs labyrinthitis Assessment & Plan (07/31/2022 8:47 AM SUGARCANE PLANTER): Symptoms are consistent with BPPV. Also with [...] Assessment & Plan (03/30/2023 1:57 PM CDT): LAYNER appt on 03/15/23 - There was concern [...] 08/03/2018 Assessment & Plan (08/12/2022 5:10 PM SUGARCANE PLANTER): Not VS- observe Assessment & Plan (04/08/2022 11:21 AM CDT): Not VS- observe Assessment & Plan (10/02/2020 11:43 AM SUGARCANE PLANTER): Increased glare symptoms- but defer cataract extraction (CE) for now Assessment & Plan (12/27/2019 12:12 PM CDT): Decreased Va with BAT, not significant to pt. Assessment & Plan (08/03/2018 11:46 AM SUGARCANE PLANTER): - NVS, observe Primary open angle glaucoma (POAG) of both eyes, severe stage 08/02/2018 Overview (08/20/2021): Brimonidine allergy Assessment & Plan (08/12/2022 5:10 PM SUGARCANE PLANTER): IOP mid to high teens on 3 [...] DFE. Assessment & Plan (08/20/2021 3:35 PM SUGARCANE PLANTER): Today 08/20/21 VA OD 20/20 and OS [...] (OU) Assessment & Plan (10/02/2020 8:09 PM SUGARCANE PLANTER): GVF: variable SNS OD, stable OS vs 07/2018 OCT RNFL: thinner sup vs 07/2018 OD, thinner sup vs 2014 OS but stable vs 2018 IOPs stable today on 3 classes OU [...] gtts Assessment & Plan (08/03/2018 9:41 PM SUGARCANE PLANTER): - status post (s/p) SLT OU - [...] future Assessment & Plan (08/14/2022 10:08 PM SUGARCANE PLANTER): Blood pressure 146/60 during last clinic visit despite compliance with losartan 100 mg daily and amlodipine 10 mg daily. States that her blood pressure has bee consistently > 140/80 when checking at home. Denies headaches, dizziness, blurry vision or anxiety. - Start HCTZ 12.5 mg daily - BMP in 1-2 weeks to monitor electrolytes - patient informed Assessment & Plan (07/31/2022 8:50 AM SUGARCANE PLANTER): BP above goal in clinic today despite [...] infectious disease 11/19/2016 09/23/2021 Dysuria 09/27/2013 09/23/2021 Encounters Date Type Department Care Team Description 05/23/2025 Telephone [facility] [address] [place] [address] Sandra Gambino RN 05/10/2025 9:15 AM CDT - 05/10/2025 11:59 PM CDT Hospital Encounter [facility] ([facility]) [address] [place] [phone] Screening mammogram, encounter for Discharge Disposition: Discharge to home or self care 03/28/2025 10:00 AM CDT - 03/28/2025 11:59 PM CDT Hospital Encounter [facility] ([facility]) [address] [place] [id number] Asymptomatic menopausal state Discharge Disposition: Discharge to home or self care 03/27/2025 Telephone [facility] ([facility]) [address] [place] [id number] Christiana Martinez RT 03/15/2025 Orders Only [facility] Health Information Management [address] [place] [address] Scanning, Provider from Last 3 Months Immunizations Immunization Administration Dates Next Due Influenza, Quadrivalent, Spl it, Preservative Free, Intradermal 05/08/2016 Influenza, Quadrivalent, Spl it, Preservative Free, Intramuscular 07/05/2020,05/24/2018,04/25/2014 Influenza, Split 04/25/2009 Influenza, Trivalent, IM (MDV) 04/25/2012 Td, Unspecified 11/23/2012 Tdap 03/20/2009 Surgical History Surgery Date Site/Laterality Comments CHOLECYSTECTOMY Cholecystectomy APPENDECTOMY Appendectomy OTHER SURGICAL HISTORY 2008 Cancer, breast: Lumpectomy OTHER SURGICAL HISTORY Glaucoma: Drug therapy OTHER SURGICAL HISTORY postmenopausal bleeding: DONALDO, ovarian remnant excision MASTECTOMY PARTIAL / LUMPECTOMY 07/26/2013 - 07/25/2014 Left DCIS Medical History Medical History Date Comments Glaucoma Glaucoma Hx Other Medical postmenopausal bleeding Hypertension Hyperlipidemia GERD (gastroesophageal reflux disease) Colon polyp Breast cancer (HCC) 2013 DCIS History of radiation therapy Family History Medical History Relation Name Comments Diabetes type II Father Diabetes -T ype II; Hyperlipidemia Mother Breast cancer Mother's Sister Colon cancer Neg Hx Ovarian cancer Neg Hx Pancreatic cancer Neg Hx Prostate cancer Neg Hx Relation Name Status Comments Father Mother Mother's Sister Social History Tobacco Use Types Packs/Day Years [...] and Family Not on file 04/13/2019 Attends Holiness Services Not on file 04/13 Active Member [...] on file Legal Sex Female 12:42 AM SUGARCANE PLANTER Gender Identity Not on file Sexual Orientation [...] 10:52 AM CDT Respiratory Rate 20 03/26/2023 10:52 AM CDT Oxygen Saturation 100% 03/26/2023 10:52 AM CDT Inhaled Oxygen Concentration - - Weight 90.7 kg (200 lb) 05/10/2025 9:51 AM CDT Height 175.3 cm (5' 9) 05/10/2025 9:51 AM CDT Body Mass Index 29.53 05/10/2025 9:51 AM CDT Plan of Treatment Scheduled Procedures Name Priority Associated Diagnoses Date/Ti me COLONOSCOPY Colon cancer screening Health Maintenance Due Date Last Done Comments Depression Screening 1960 Hepatitis B Screening 1976 Pneumococcal vaccine 65+ (1 of 1 - PCV) 2008 Zoster Vaccine (1 of 2) 2008 Fall Risk Assessment 01/17/2020 01/16/2019 DTaP/Tdap/Td Vaccine (3 - Td or Tdap) 11/23/2022 11/23/2012, 03/20/2009 Well Visit 65+ 2023 Influenza Vaccine (#1) 2025 , 07/05/2020, 05/24/2018, Additional history exists Colon Cancer Screening-Colonoscopy 09/16/2025 09/16/2015 Breast Cancer Screening-Mammogram 05/10/2026 05/10/2025, 01/07/2024, 12/09/2022, Additional history exists Osteoporosis Screening-Bone Density Scan 03/28/2027 03/28/2025 Colon Cancer Screening-CT Colonography Discontinued 09/16/2015 Colon [...] (rather than stopping them without telling anyone). [facility] Hypertension Care Plan Chronic Care [...] Drink more water Diet Improving( 10:02 AM SUGARCANE PLANTER) No Stu East RN Procedures Procedure Name Priority Date/Time Associated Diagnosis Comments SCREENING MAMMOGRAM BILATERAL W JOSÉ LUIS Schedule Routine, Read Routine (OP Routine) 05/10/2025 10:03 AM CDT Screening mammogram, encounter for DEXA AXIAL SKELETON BONE DENSITY 1 OR MORE SITES Schedule Routine, Read Routine (OP Routine) 03/28/2025 10:23 AM CDT Asymptomatic menopausal state SCAN - OTHER ORDERS 03/15/2025 HEPATITIS C RNA, QUANTITATIVE, PCR Routine 02/25/2021 4:22 PM CDT Encounter for hepatitis C screening test for low risk patient COLONOSCOPY REPORT 09/16/2015 from Last 3 Months or Most Recently Relevant to Health Maintenance Results * Screening Mammogram Bilateral W José Luis (05/10/2025 10:03 AM CDT) Anatomical Region Laterality Modality Breast Bilateral Mammography Impressions 05/11/2025 11:28 AM CDT Bilateral No evidence of malignancy in either breast. OVERALL BI-RADS FINAL ASSESSMENT: 2 - Benign RECOMMENDATION: Recommend bilateral annual screening mammography. Narrative 05/11/2025 11:28 AM CDT EXAMINATION: Screening Mammogram Bilateral W José Luis: 05/10/2025 COMPARISON: Relevant prior studies available at the time of interpretation were reviewed, including the most recent mammogram on: 07/17/2024. TECHNIQUE: Mammography was performed with 2D and 3D digital breast tomosynthesis (DBT) images. CAD was utilized. BREAST PARENCHYMAL COMPOSITION: There are scattered areas of fibroglandular density. FINDINGS: Left 1) Post-Surgical Finding: There are post-surgical findings from a previous lumpectomy with radiation seen in the left breast. There has been no interval development of a suspicious finding. This finding is benign. There is no suspicious mass, calcification, or architectural distortion. Right There is no suspicious mass, calcification, or architectural distortion. us Self Screening Mammogram IMG MAMMO PROCEDURES Fi nal Result * Dexa Axial Skeleton Bone Density 1 or 2 Site (03/28/2025 10:23 AM CDT) Anatomical Region Laterality Modality Body N/A Digital Radiogra phy 03/28/2025 10:3 8 AM CDT Impressions 03/28/2025 11:01 AM CDT 1. The bone mineral density of the lumbar spine is normal. 2. The bone mineral density of the left femoral neck is normal. 3. The bone mineral density of the left total hip is normal. 4. Overall, the above findings are normal by WHO criteria. 5. Calculation of fracture risk using the FRAX model is not appropriate in certain settings. It was not performed in this patient because the patient met the following condition(s): normal bone density. General comments regarding interpretation of bone density measurements: A) In children, premenopausal woman and males under age 50 not at increased risk for fractures only Z-scores, not T-scores are used to indicate risk. A Z-score above -2.0 is defined as within the expected range for age and Z-score at or less than -2.0 is below the expected range for age. A Z-score below the expected range for age in a patient with recent fractures and/or chronic corticosteroid treatment is consistent with a diagnosis of osteoporosis. B) In post menopausal women and males over 50, comparison of the measured bone mineral density with the average value in young normal subjects (the T-score) has been found to be useful in assessing fracture risk. Fracture risk approximately doubles for each 1.0 standard deviation (SD) in individual's hip or spine bone mineral density is below the average value of young normal subjects. The World Health Organization (WHO) has defined T-scores of -1.0 to -2.5 as diagnostic of low bone mass (OSTEOPENIA), and T-scores of -2.5 or lower to be diagnostic of OSTEOPOROSIS, based on the site of lowest bone density. Note that there will be a change in reporting format and reference databases as patients move from the younger population (group A) to the older population (group B) The National Osteoporosis Foundation (www.nof.org) recommends adequate intake of calcium and vitamin D and regular weight-bearing exercise in all patients. They recommend pharmacologic treatment in postmenopausal women and men age 50 and older presenting with any of the followin) Osteoporosis, after appropriate evaluation to exclude secondary causes. 2) A hip or vertebral (clinical or radiographic) fracture, regardless of the bone density. 3) Low bone mass (Osteopenia) and one or more of: other prior fractures, secondary causes associated with high risk of fracture (such as glucocorticoid use or total immobilization), or computed high risk of fracture (10-yr probability of hip fracture >= 3% or a 10-yr probability of any major osteoporosis-related fracture >= 20% based on the [place].-adapted WHO algorithm), available at http://www.shef.ac.uk/FRAX). Dictated by: Sandra Chauhan M.D. The radiology attending physician has personally reviewed this study, and had reviewed and/or edited this written report and agrees with it. 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 She is status post hysterectomy and oophorectomy at age 53. She is being treated with calcium and vitamin D. Evaluate bone mineral density. Additional risk factors for fracture: None. FINDINGS (SPINE): The bone mineral density of L1, L2, L4 was assessed by dual-energy x-ray absorptiometry. The average bone mineral density within this region is 1.218 gm/sq-cm. This is 2.8 standard deviations above the mean of the average bone mineral density for age- and gender-matched subjects (the Z-score). It is 1.7 standard deviations above the mean peak bone mineral density in young adults (the T-score). FINDINGS (FEMORAL NECK): The bone mineral density of the left femoral neck was assessed by dual-energy x-ray absorptiometry. The average bone mineral density within the femoral neck region is 0.882 gm/sq-cm. This is 0.9 standard deviations above the mean of the average bone mineral density for age- and gender-matched subjects (the Z-score). It is 0.3 standard deviations above the mean peak bone mineral density in young adults (the T-score). FINDINGS (TOTAL HIP): The bone mineral density of the left hip was assessed by dual-energy x-ray absorptiometry. The average bone mineral density within the total hip region is 0.963 gm/sq-cm. This is 0.6 standard deviations above the mean of the average bone mineral density for age- and gender-matched subjects (the Z-score). It is 0.2 standard deviations above the mean peak bone mineral density in young adults (the T-score). 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 She is status post hysterectomy and oophorectomy at age 53. She is being treated with calcium and vitamin D. Evaluate bone mineral density. Additional risk factors for fracture: None. FINDINGS (SPINE): The bone mineral density of L1, L2, L4 was assessed by dual-energy x-ray absorptiometry. The average bone mineral density within this region is 1.218 gm/sq-cm. This is 2.8 standard deviations above the mean of the average bone mineral density for age- and gender-matched subjects (the Z-score). It is 1.7 standard deviations above the mean peak bone mineral density in young adults (the T-score). FINDINGS (FEMORAL NECK): The bone mineral density of the left femoral neck was assessed by dual-energy x-ray absorptiometry. The average bone mineral density within the femoral neck region is 0.882 gm/sq-cm. This is 0.9 standard deviations above the mean of the average bone mineral density for age- and gender-matched subjects (the Z-score). It is 0.3 standard deviations above the mean peak bone mineral density in young adults (the T-score). FINDINGS (TOTAL HIP): The bone mineral density of the left hip was assessed by dual-energy x-ray absorptiometry. The average bone mineral density within the total hip region is 0.963 gm/sq-cm. This is 0.6 standard deviations above the mean of the average bone mineral density for age- and gender-matched subjects (the Z-score). It is 0.2 standard deviations above the mean peak bone mineral density in young adults (the T-score). SUMMARY OF CURRENT RESULTS: Region BMD T-score Z-score AP Spine (L1, L2, L4) 1.218 1.7 2.8 Femoral Neck (Left) 0.882 0.3 0.9 Total Hip (Left) 0.963 0.2 0.6 IMPRESSION: 1. The bone mineral density of the lumbar spine is normal. 2. The bone mineral density of the left femoral neck is normal. 3. The bone mineral density of the left total hip is normal. 4. Overall, the above findings are normal by WHO criteria. 5. Calculation of fracture risk using the FRAX model is not appropriate in certain settings. It was not performed in this patient because the patient met the following condition(s): normal bone density. General comments regarding interpretation of bone density measurements: A) In children, premenopausal woman and males under age 50 not at increased risk for fractures only Z-scores, not T-scores are used to indicate risk. A Z-score above -2.0 is defined as within the expected range for age and Z-score at or less than -2.0 is below the expected range for age. A Z-score below the expected range for age in a patient with recent fractures and/or chronic corticosteroid treatment is consistent with a diagnosis of osteoporosis. B) In post menopausal women and males over 50, comparison of the measured bone mineral density with the average value in young normal subjects (the T-score) has been found to be useful in assessing fracture risk. Fracture risk approximately doubles for each 1.0 standard deviation (SD) in individual's hip or spine bone mineral density is below the average value of young normal subjects. The World Health Organization (WHO) has defined T-scores of -1.0 to -2.5 as diagnostic of low bone mass (OSTEOPENIA), and T-scores of -2.5 or lower to be diagnostic of OSTEOPOROSIS, based on the site of lowest bone density. Note that there will be a change in reporting format and reference databases as patients move from the younger population (group A) to the older population (group B) The National Osteoporosis Foundation (www.nof.org) recommends adequate intake of calcium and vitamin D and regular weight-bearing exercise in all patients. They recommend pharmacologic treatment in postmenopausal women and men age 50 and older presenting with any of the followin) Osteoporosis, after appropriate evaluation to exclude secondary causes. 2) A hip or vertebral (clinical or radiographic) fracture, regardless of the bone density. 3) Low bone mass (Osteopenia) and one or more of: other prior fractures, secondary causes associated with high risk of fracture (such as glucocorticoid use or total immobilization), or computed high risk of fracture (10-yr probability of hip fracture >= 3% or a 10-yr probability of any major osteoporosis-related fracture >= 20% based on the [place].-adapted WHO algorithm), available at http://www.shef.ac.uk/FRAX). Dictated by: Sandra Chauhan M.D. The radiology attending physician has personally reviewed this study, and had reviewed and/or edited this written report and agrees with it. Electronically signed by: Isaiah Landin DO us Skyla Alexandre MD IM DXA PROCEDURES Final R esult * SCAN - OTHER ORDERS (03/15/2025) us Provider Scanning Final Result * Hepatitis C (HCV) RNA PCR, quantitative (02/25/2021 4:22 PM CDT) Pathologist [facility] HCV RNA result Not Detected [facility] Comment: Interpretive data: The quantifiable range of this assay is 15 IU/mL to 100,000,000 IU/mL (1.18 log IU/mL to 8.00 log IU/mL). Testing was performed by the [employer] AmpliPrep/LEONIDAS TaqMan HCV Test version 2.0 ([employer] Testing performed at [facility] Current Interpretive Data was last revised on 2015. Blood specimen (specimen) 02/25/2021 4:22 PM CDT 02/25/2021 4:22 PM CDT Shahla Scruggs MD LAB MICROBIOLOGY - GENERAL OR DERABLES Final Result [facility] Department [place] [address] * COLONOSCOPY REPORT (09/16/2015) Anatomical Region Laterality Modality Other Narrative 09/16/2015 Ordered by an unspecified provider. us Historical Provider GI PROCEDURE ORDERABLES F inal Result from Last 3 Months or Most Recently Relevant to Health Maintenance Insurance [facility] CHOICE PLUS MEDICARE ADVANTAGE MEDICARE ADVANTAGE Advance Directives For more information, please contact: [phone] * Full Code (Latest Code Status on File) Date Activated Date Inactivated Comments 01/23/2019 9:09 AM 01/23/2019 1:56 PM Care Teams Counseling Director Relationship Specialty Start Date End Date No, Physician PCP - General 04/24/25
--- OUTSIDE RECORDS SUMMARY | 2025-05-29 22:19 | XMS_ITS | Encounter Summary ---
Author Organization [facility] Healthcare Address [address] [place] [address] Care Team Providers Care Inpatient Services Director Name Role Phone Karma Ledezma MD Primary Care Provide r No, Physician Primary Care Provider [phone] Encounter Details Date Type Department Care Team (Late st Contact Info) Description 03/27/2025 Telephone [facility] [address] [place] [address] Christiana Martinez, RT Social History Tobacco Use Types Packs/Day Years [...] and Family Not on file 04/13/2019 Attends [employer] Services Not on file 04/13 Active Member [...] on file Legal 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 [facility] Hypertension Care Plan Chronic Care Management [...] Drink more water Diet Improving( 10:02 AM DYE PADDER OPERATOR) No Stu East RN documented as of this encounter Visit Diagnoses Not on filedocumented in this encounter Care Teams Inpatient Services Director Relationship Specialty Start Date End Date Karma Ledezma MD [address] [address] PCP - General 01/09/23 04/23/25 Katlyn, Physician PCP - General 04/24/25 documented as of this encounter
--- OUTSIDE RECORDS SUMMARY | 2025-05-29 22:19 | XMS_ITS | Clinical Summary ---
Author Organization [facility] Address [address] [place] [address] Care Team Providers Care Validation Manager Name Role Phone Unknown, Provider Primary Care Provider Unavaila ble Source Comments [facility],non-owned Affiliates and Associated Physician Practices is amultiple site organization consisting of ambulatory clinics and hospital sitesin [place], [place], [place] and [place]. This disclosure is being madepursuant to the Care Everywhere program and may not contain all information available regarding this patient. 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 Gender Identity Not on file Sexual Orientation [...] 1:12 PM CDT Height 175.3 cm (5' 9) 12/24/2015 1:02 PM CDT Body Mass Index [...] of 2) 2008 LIPID TESTING 12/23/2020 12/24/2015 DEPRESSION SCREENING 07/26/2024 MEDICARE AWV CALENDAR YEAR 2024 MAMMOGRAM 01/06/2025 01/07/2024, 12/24, 12/09/2022, Additional history exists COVID-19 VACCINE (1 - 2023- season) 2025 INFLUENZA VACCINE (#1) 2025 , 05/24/2018, 05/08/2016, Additional history exists Respiratory Syncytial [...] PM CDT) Cholesterol Total 202(H) <200 mg/dL [facility] HDL 65 >40 mg/dL [facility] Comment: ATP III Classification of HDL Cholesterol: <40 mg/dL: Considered a major risk factor. >60 mg/dL: Considered a negative risk factor. LDL Calculated 107(H) <100 mg/dL [facility] Comment: ATP III Classification of LDL Cholesterol: <100 mg/dL: Optimal 100 - 129 mg/dL: Near Optimal/Above Optimal 130 - 159 mg/dL: Borderline High 160 - 189 mg/dL: High >190 mg/dL: Very High Triglycerides 148 <150 mg/dL [facility] Comment: ATP III Classification of Triglycerides: <150 mg/dL: Normal 150 - 199 mg/dL: Borderline High 200 - 400 mg/dL: High >500 mg/dL: Very High Blood specimen (specimen) BLOOD SPECIMEN / Unknown 12/24/2015 2:54 PM CDT 12/24/2015 3:29 PM CDT Aster Rios PARTITION NOTCHER-INTEGRATION TECHNICIAN LAB - CHEMISTRY ORDERABL ES Final Result [address] [phone] from Last 3 Months or Most Recently Relevant to Health Maintenance Insurance [facility] Care Teams Validation Manager Relationship Specialty Start Date End Date Unknown, Provider PCP - General 01/23/18
--- OUTSIDE RECORDS SUMMARY | 2025-05-29 22:19 | XMS_ITS | Encounter Summary ---
Author Organization [facility] Address [facility] [place] [address] Care Team Providers Care Ship Painter Helper Name Role Phone Claudine Ramsey MD Primary Care Provider [phone] Ernesto Fitzpatrick MD Unavailable Unavailable Annalisa Lal MD Primary Care Provider [phone] Annalisa Lal MD Primary Care Provider [phone] Annalisa Lal MD Primary Care Provider [phone] Claudine Ramsey MD Primary Care Provider [phone] Encounter Details Date Type Department Care Team (Late st Contact Info) Description 12/01/2016 Abstract [facility] AT [address] [address] Yobany Garcia MA Social History Tobacco Use [...] on filedocumented in this encounter Care Teams Ship Painter Helper Relationship Specialty Start Date End Date Claudine Ramsey MD PCP - General FAMILY PRACTICE 12/25/15 12/30/16 Annalisa Lal MD PCP - General 01/11/17 03/08/17 Annalisa Lal MD PCP - General 01/01/17 01/10/17 Annalisa Lal MD PCP - General 12/31/16 12/31/16 Claudine Ramsey MD PCP - General 03/09/17 Ernesto Fitzpatrick MD [place] [employer] Press Operator CARDIOVASCULAR DISEASE 11/24/16 documented as of this encounter
--- OUTSIDE RECORDS SUMMARY | 2025-05-29 22:19 | XMS_ITS | Encounter Summary ---
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
[2025-05-29 22:23] VITALS: BP 157/67; PULSE 88; RESP 20; TEMP 37.1; O2SAT 100
[2025-05-30] MEDS: ACETAMINOPHEN 500 MG TABLET 1000 MG PO (02:24)
--- NOTE | 2025-05-30 02:24 | ED.GENADULT ---
HPI - General Adult General Chief complaint: Extremity Problem,Nontraumatic Stated complaint: unable to walk Time Seen by Provider: 05/30/25 01:08 History of Present Illness HPI narrative: this is a 65-year-old female presenting with right Groin pain. Patient says says the pain started earlier today. Is making it difficult to walk. There is no traumatic event or injury. She has not taken anything for baking control. She does not have any weakness to the leg but it does hurt to try to lift the left leg off the bed. No loss of sensation to the legs. No urinary retention or bowel. No saddle anesthesia. No fevers or cancer. Related Data Home Medications ?Medication ?Instructions ?Recorded ?Confirmed ?Last Taken ?Type amlodipine 10 mg tablet 10 mg PO DAILY 06/05/21 08/18/21 Unknown History atorvastatin 20 mg tablet 20 mg PO DAILY 06/05/21 08/18/21 Unknown History diclofenac sodium 1 % topical gel 2 g topical QID PRN Pain 06/05/21 08/18/21 Unknown History (Arthritis Pain (diclofenac)) dorzolamide 22.3 mg-timolol 6.8 1 drp EACH EYE QHS 06/05/21 08/18/21 Unknown History mg/mL eye drops latanoprost 0.005 % eye drops 1 drp EACH EYE DAILY 06/05/21 08/18/21 Unknown History losartan 100 mg tablet 100 mg PO DAILY 06/05/21 08/18/21 Unknown History Allergies Allergy/AdvReac Type Severity Reaction Status Date / Time No Known Allergies Allergy Verified 08/18/21 10:15 [facility] Past Medical History Medical History OAB (overactive bladder) History of radiation therapy HX: breast cancer Hyperlipidemia Benign essential HTN Cholecystitis Appendicitis Glaucoma Surgical History Surgical History Hx of lumpectomy Status post glaucoma surgery S/P DONALDO (total abdominal hysterectomy) Hx laparoscopic cholecystectomy History of appendectomy Family History Family History Other Heart disease Hypertension Social History Social History Second hand tobacco smoke exposure: No Alcohol intake: never Substance use: never Substance use type: does not use Living arrangements: alone Occupation/Education: unemployed Gender identity (if verbalized by the patient): Female Sexual Orientation (if Verbalized by the Patient): Straight or Heterosexual Exam Narrative: APPEARANCE: No apparent distress. Head: atraumatic. EYES: EOMI, NOSE: Atraumatic NECK: Trachea midline RESPIRATORY: No increased rate of breathing CARDIOVASCULAR: RRR, Pulses intact in the groin and right foot. no palpable masses in the groin ABDOMINAL: Non-distended MUSCULOSKELETAl: focal exam of the right lower extremity showed that intact pulses and cap refill in the foot. minimal pain with passive flexion extension and rotation of hip. Significant pain with active movement. Straight leg negative bilaterally. No overlying skin changes. NEURO: Alert. Moving 4/4 extremities SKIN:: Warm, dry. Normal color PSYCHIATRIC: Normal affect Course Vital Signs Vital signs: Vital Signs Temperature 98.7 F 05/29/25 22:23 Pulse Rate 88 05/29/25 22:23 Respiratory Rate 20 05/29/25 22:23 Blood Pressure 157/67 H 05/29/25 22:23 Pulse Oximetry 100 05/29/25 22:23 Oxygen Delivery Room Air 05/29/25 22:23 Temperature 98.7 F 05/29/25 22:23 Pulse Rate 80 05/30/25 02:59 Respiratory Rate 18 05/30/25 02:59 Blood Pressure 131/53 L 05/30/25 02:59 Pulse Oximetry 99 05/30/25 02:59 Oxygen Delivery Room Air 05/30/25 02:59 Medical Decision Making [facility] Narrative Medical decision making narrative: -Course: 65-year-old female presenting with atraumatic right groin pain. history physical most consistent with arthritis versus muscle strain. Leg is neurovascularly intact. There are no overlying skin findings or signs of infection. X-ray did not show any acute fractures. Patient is treated with NSAIDs muscle relaxers. She is now able to bear weight And could walk around the emergency department. Patient is comfortable being discharged. She is requesting a work note for tomorrow. This was provided. Patient discharged return precautions. -DDX includes but is not limited to: Muscle strain, arthritis, DVT, Vascular insult, infection Vital Signs Vital Signs: Vital Signs Temperature 98.7 F 05/29/25 22:23 Pulse Rate 88 11/04/25 22:23 Respiratory Rate 20 05/29/25 22:23 Blood Pressure 157/67 H 05/29/25 22:23 Pulse Oximetry 100 05/29/25 22:23 Oxygen Delivery Room Air 05/29/25 22:23 Temperature 98.7 F 05/29/25 22:23 Pulse Rate 80 05/30/25 02:59 Respiratory Rate 18 05/30/25 02:59 Blood Pressure 131/53 L 05/30/25 02:59 Pulse Oximetry 99 05/30/25 02:59 Oxygen Delivery Room Air 05/30/25 02:59 Discharge Plan Discharge Clinical Impression: Groin pain Patient Disposition: Home Condition: Stable Instructions: Antibiotic Form, Groin Pain (ED) Additional Instructions: You were seen in the emergency department for groin pain. Please use the prescribed medications as directed. Please follow-up with the primary care physician for further management. You develop severe pain or inability walk please return the ED for re-evaluation. Patient Language: [place] Prescriptions: New acetaminophen 500 mg tablet 1,000 mg PO TID PRN (Reason: chalo) 7 Days Qty: 42 0RF ibuprofen 800 mg tablet 800 mg PO TID PRN (Reason: pain) 7 Days Qty: 21 0RF methocarbamol 750 mg tablet 1,500 mg PO TID Qty: 42 0RF No Action latanoprost 0.005 % drops 1 drp EACH EYE DAILY dorzolamide-timolol 22.3-6.8 mg/mL drops 1 drp EACH EYE QHS amlodipine 10 mg tablet 10 mg PO DAILY atorvastatin 20 mg tablet 20 mg PO DAILY losartan 100 mg tablet 100 mg PO DAILY diclofenac sodium [Arthritis Pain (diclofenac)] 1 % gel 2 g topical QID PRN (Reason: Pain) Rx Instructions: apply to single elbow, wrist or hand; for hand includes palm/fingers/back of hand oxybutynin chloride 5 mg tablet 5 mg PO BID Qty: 60 2RF hydrocodone-acetaminophen 5-325 mg tablet 1 tablet PO Q8H PRN (Reason: pain) Qty: 10 0RF Follow-up/Referrals: UNKNOWN,DOCTOR [Primary Care Provider] Stand Alone Forms: Work/School Release IP
[2025-05-30] MEDS: KETOROLAC 30 MG/ML VIAL (*BKC) IM (02:25)
[2025-05-30 02:30] VITALS: BP 129/76; PULSE 75; RESP 16; O2SAT 99
[2025-05-30 02:59] VITALS: BP 131/53; PULSE 80; RESP 18; O2SAT 99
[2025-05-30 03:32] VITALS: BP 131/53; PULSE 75; RESP 18; O2SAT 100
== END 2025-05-30 03:30 | disposition home or self-care (01) ==
PROVIDERS: Emergency Provider Emergency Medicine
DX: R10.31 Right lower quadrant pain (principal); Z85.3 Personal history of malignant neoplasm of breast; E78.5 Hyperlipidemia, unspecified; I10 Essential (primary) hypertension
CPT/HCPCS: 73502; 96372; 99283; A9270; J1885